=== PATIENT | male | born 1950 | race Caucasian/White ===

== ENCOUNTER 2023-07-17 16:43 | Inpatient (IN) | payer BC, MEDICARE ==
[2023-07-17 17:39] LABS: Basophils # (A) 0.1 k/uL (0-0.2); Basophils % (A) 1 %; Eosinophils # (A) 0.3 k/uL (0-0.7); Eosinophils % (A) 2 %; HCT 54.4 % (39.0-53.0); HGB 16.7 gm/dL (13.0-17.5); Lymphocytes # (A) 1.1 k/uL (1.0-4.8); Lymphocytes % (A) 9 %; MCHC 30.6 g/dL (31.0-37.0); Mean Platelet Volume 12.1; Monocytes # (A) 0.9 k/uL (0-1.0); Monocytes % (A) 8 %; Neutrophils # (A) 9.1 k/uL (1.3-7.7); Neutrophils % (A) 77 %; Platelet Count 188 k/uL (150-450); RBC 6.18 m/uL (4.30-5.90); RDW 14.7 % (11.5-15.5); WBC 11.8 k/uL (3.8-10.6)
[2023-07-17 17:49] LABS: ALT 34 U/L (4-49); AST 38 U/L (17-59); African American GFR (CKD) >90 (>60 ml/min/1.73 sqM); Albumin 4.2 g/dL (3.5-5.0); Alkaline Phosphatase 112 U/L (38-126); Anion Gap 9 mmol/L; Blood Urea Nitrogen 13 mg/dL (9-20); Calcium 9.2 mg/dL (8.4-10.2); Carbon Dioxide 24 mmol/L (22-30); Chloride 102 mmol/L (98-107); Glucose 135 mg/dL (74-99); Magnesium 1.9 mg/dL (1.6-2.3); Non-African American GFR(CKD) 88 (>60 ml/min/1.73 sqM); Sodium 135 mmol/L (137-145); Total Bilirubin 1.8 mg/dL (0.2-1.3); Total Protein 6.9 g/dL (6.3-8.2)
[2023-07-17 17:56] LABS: INR 1.4 (<1.2); Partial Thromboplastin Time 23.6 sec (22.0-30.0); Prothrombin Time 14.3 sec (10.0-12.5)
--- NOTE | 2023-07-17 17:56 | ED ---
SOB HPI - General Chief Complaint: Shortness of Breath Stated Complaint: Swollen Legs,Rash Time Seen by Provider: 07/17/23 17:43 Source: patient Mode of arrival: ambulatory Limitations: no limitations - History of Present Illness Initial Comments: This patient is a 72-year-old man who presents to have evaluation for constellation of symptoms that been getting worse over 2 to 3 weeks. The patient has noted that he has had bilateral lower extremity edema which has progressed up his legs, is now involving his scrotum and his abdomen. He also has been feeling more short of breath. He has a nonproductive cough. His breathing is worse if he lies flat or if he attempts to do any exertion. The patient denies chest pain. No nausea or vomiting. Has not noted change in bowel movements. Patient's states he seems to be urinating more frequentl y. The patient does not see a physician. He states that he more often than not will drink about a half a pint of liquor per day. MD Complaint: shortness of breath Onset/Timin -: week(s) Quality: other (Pressure/tight feeling throughout the extremities) Consistency: constant Improves With: upright position Worsens With: lying flat, exertion Associated Symptoms: cough, lower extremity pain (Swelling), lower abdominal swelling Treatments Prior to Arrival: none - Related Data Home Medications Medication Instructions Recorded Confirmed Ascorbic Acid [Vitamin C] 500 mg PO DAILY 07/17/23 07/17/23 Cholecalciferol [Vitamin D3 (25 50 mcg PO DAILY 07/17/23 07/17/23 Mcg = 1000 Iu)] Famotidine [Pepcid] 20 mg PO BID PRN 07/17/23 07/17/23 Guaifenesin/Pseudoephedrne HCl 1 tab PO BID PRN 07/17/23 07/17/23 [Mucinex D ER 1,200-120 mg Tab] Melatonin 5 mg PO HS 07/17/23 07/17/23 Milk Thistle 350mg 350 mg PO DAILY 07/17/23 07/17/23 Oxymetazoline 0.05% Nasl [place] 2 spray EA NOSTRIL BID PRN 07/17/23 07/17/23 [Afrin 0.05% Nasal [place]] Simethicone 180 mg PO DAILY PRN 07/17/23 07/17/23 Ubidecarenone [Coenzyme Q10] 200 mg PO DAILY 07/17/23 07/17/23 Wheat Dextrin [Benefiber] 1 packet PO TID PRN 07/17/23 07/17/23 Previous Rx's Medication Instructions Recorded Apixaban [Eliquis] 5 mg PO BID #60 tab 07/19/23 Acetaminophen Tab [Tylenol] 325 mg PO Q6HR PRN tab 07/23/23 Amiodarone [Cordarone] 200 mg PO DAILY #30 tab 07/23/23 Bumetanide [Bumex] 1 mg PO DAILY #30 tablet 07/23/23 Dapagliflozin Propanediol [Farxiga] 10 mg PO DAILY #30 tab 07/23/23 Metoprolol Tartrate [Lopressor] 75 mg PO TID #150 tab 07/23/23 Sacubitril/Valsartan [Entresto 24 1 each PO BID #60 tab 07/23/23 mg-26 mg Tablet] Spironolactone [Aldactone] 12.5 mg PO DAILY #15 tab 07/23/23 Thiamine [Vitamin B-1] 100 mg PO DAILY #30 cap 07/23/23 diphenhydrAMINE & Zinc Cream 1 applic TOPICAL TID PRN 3 Days #1 07/23/23 [Benadryl Cream] tub Allergies Allergy/AdvReac Type Severity Reaction Status Date / Time No Known Allergies Allergy Verified 07/17/23 18:10 Review of Systems ROS Statement: Those systems with pertinent positive or pertinent negative responses have been documented in the HPI. ROS Other: All systems not noted in ROS Statement are negative. Constitutional: Denies: fever, chills, weakness Respiratory: Reports: cough, dyspnea. Denies: wheezes Cardiovascular: Reports: dyspnea on exertion, orthopnea, edema. Denies: chest pain, palpitations, syncope Gastrointestinal: Denies: abdominal pain, vomiting, diarrhea, constipation Genitourinary: Reports: frequency. Denies: dysuria, hematuria Musculoskeletal: Denies: back pain Skin: Reports: change in color Neurological: Denies: headache, weakness Psychiatric: Reports: anxiety Past Medical History Past Medical History: No Reported History History of Any Multi-Drug Resistant Organisms: None Reported Additional Past Surgical History / Comment(s): sinus surgery Past Psychological History: No Psychological Hx Reported Smoking Status: Never smoker Past Drug Use History: None Reported General Exam Limitations: no limitations General appearance: alert, in distress Head exam: Present: atraumatic, normocephalic Eye exam: Present: normal appearance. Absent: scleral icterus, conjunctival injection Neck exam: Present: normal inspection Respiratory exam: Present: rales (Bilateral bases). Absent: wheezes, rhonchi, stridor, accessory muscle use Cardiovascular Exam: Present: tachycardia, irregular rhythm, normal heart sounds. Absent: systolic murmur, diastolic murmur, rubs, gallop GI/Abdominal exam: Present: soft, distended, hernia (Umbilical). Absent: tenderness, guarding, rebound, rigid, pulsatile mass Extremities exam: Present: full ROM, normal capillary refill, pedal edema, other (Patient has anasarca and chronic stasis change) Back exam: Present: normal inspection. Absent: CVA tenderness (R), CVA tenderness (L) Neurological exam: Present: alert, oriented X3. Absent: motor sensory deficit Psychiatric exam: Present: anxious Skin exam: Present: warm, dry, intact, other (Bilateral stasis change) Course Vital Signs 07/17/23 07/17/23 07/17/23 17:00 19:00 20:30 Temperature 98.5 F Pulse Rate 50 L 146 H 141 H Pulse Rate [ Pulse Oximetery ] Respiratory 20 20 19 Rate Blood Pressure 179/119 138/112 134/107 Blood Pressure [Right Arm] O2 Sat by Pulse 96 96 94 L Oximetry 07/17/23 07/18/23 07/18/23 21:00 00:00 04:00 Temperature 97.8 F 97.8 F Pulse Rate 128 H Pulse Rate [ 113 H 103 H Pulse Oximetery ] Respiratory 19 16 16 Rate Blood Pressure 177/66 Blood Pressure 118/96 122/74 [Right Arm] O2 Sat by Pulse 96 96 98 Oximetry 07/18/23 08:00 Temperature Pulse Rate Pulse Rate [ 113 H Pulse Oximetery ] Respiratory 18 Rate Blood Pressure Blood Pressure [Right Arm] O2 Sat by Pulse Oximetry Medical Decision Making - Medical Decision Making The patient had chest x-ray that I interpreted as showing cardiomegaly and mild CHF. No infiltrate or pneumothorax. Was pt. sent in by a medical professional or institution (, PA, CITY TAX AUDITOR, urgent care, hospital, or [place] health care facility...) When possible be specific @ -[No] Did you speak to anyone other than the patient for history (EMS, parent, family, police, friend...)? What history was obtained from this source @ -[No] Did you review nursing and triage notes (agree or disagree)? Why? @ -[I reviewed and agree with nursing and triage notes] Were old charts reviewed (outside hosp., previous admission, EMS record, old EKG, old radiological studies, urgent care reports/EKG's, [place] health care facility records)? Report findings @ -[No old charts were reviewed] Differential Diagnosis (chest pain, altered mental status, abdominal pain women, abdominal pain men, vaginal bleeding, weakness, fever, dyspnea, syncope, headache, dizziness, GI bleed, back pain, seizure, CVA, palpatations, mental health, musculoskeletal)? @ -[Differential Dyspnea: Coronary syndrome, arrhythmia, tamponade, asthma, COPD, pulmonary embolism, pneumonia, pneumothorax, pulmonary effusion, anaphylaxis, diabetic ketoacidosis, flailed chest, pulmonary contusion, diaphragmatic rupture, anemia, neuromuscular, this is not meant to be an all-inclusive list. EKG interpreted by me (3pts min.). @ -[I interpreted as above] X-rays interpreted by me (1pt min.). @ -[I interpreted as above CT interpreted by me (1pt min.). @ -[None done] U/S interpreted by me (1pt. min.). @ -[None done] What testing was considered but not performed or refused? (CT, X-rays, U/S, labs)? Why? @ -[None] What meds were considered but not given or refused? Why? @ -[None] Did you discuss the management of the patient with other professionals (ratna cotton i.eConcepcion Lima, PA, [employer] T[employer] AUDITOR, lab, RT, psych nurse, director social, automation operator, teacher, admissions officer, comp field case manager)? Give summary @ -[Case discussed with admitting physician and treatment recommendations in corporated Was smoking cessation discussed for >3mins.? @ -[No] Was critical care preformed (if so, how long)? @ -[Yes, 30 minutes Were there social determinants of health that impacted care today? How? (Homelessness, low income, unemployed, alcoholism, drug addiction, transportation, low edu. Level, literacy, decrease access to med. care, usp, rehab)? @ -[No] Was there de-escalation of care discussed even if they declined (Discuss DNR or withdrawal of care, Hospice)? DNR status @ -[No] What co-morbidities impacted this encounter? (DM, HTN, Smoking, COPD, CAD, Cancer, CVA, ARF, Chemo, Hep., AIDS, mental health diagnosis, sleep apnea, morbid obesity)? @ -[History of hypertension Was patient admitted / discharged? Hospital course, mention meds given and route, prescriptions, significant lab abnormalities, going to OR and other pertinent info. @ -[The patient is a 73-year-old man arriving with atrial fibrillation and rapid ventricular rate. Patient started on Cardizem. There is also degree of congestive heart failure. The patient will be admitted to have further treatment as well as cardiology consultation. Undiagnosed new problem with uncertain prognosis? @ -[No] Drug Therapy requiring intensive monitoring for toxicity (Heparin, Nitro, Insulin, Cardizem)? @ -[No] Were any procedures done? @ -[No] Diagnosis/symptom? @ -[Atrial fibrillation with rapid ventricular rate Acute exacerbation of congestive heart failure Acute, or Chronic, or Acute on Chronic? @ -[Acute Uncomplicated (without systemic symptoms) or Complicated (systemic symptoms)? @ -[Complicated by dyspnea Side effects of treatment? @ -[No] Exacerbation, Progression, or Severe Exacerbation? @ -[Exacerbation Poses a threat to life or bodily function? How? (Chest pain, [place], [place], pneumonia, PE, COPD, DKA, ARF, appy, cholecystitis, CVA, Diverticulitis, Homicidal, Suicidal, threat to staff... and all critical care pts) @ -[Yes there is risk of worsening congestive heart failure leading to respir atory failure and - Lab Data Result diagrams: 07/23/23 14:23 07/23/23 10:57 Lab Results 07/17/23 07/17/23 07/17/23 Range/Units 17:04 17:04 17:04 WBC 11.8 H (3.8-10.6) k/uL RBC 6.18 H (4.30-5.90) m/uL Hgb 16.7 (13.0-17.5) gm/dL Hct 54.4 H (39.0-53.0) % MCV 88.0 (80.0-100.0) fL MCH 27.0 (25.0-35.0) pg MCHC 30.6 L (31.0-37.0) g/dL RDW 14.7 (11.5-15.5) % Plt Count 188 (150-450) k/uL MPV 12.1 Neutrophils % 77 % Lymphocytes % 9 % Monocytes % 8 % Eosinophils % 2 % Basophils % 1 % Neutrophils # 9.1 H (1.3-7.7) k/uL Lymphocytes # 1.1 (1.0-4.8) k/uL Monocytes # 0.9 (0-1.0) k/uL Eosinophils # 0.3 (0-0.7) k/uL Basophils # 0.1 (0-0.2) k/uL PT 14.3 H (10.0-12.5) sec INR 1.4 H (<1.2) APTT 23.6 (22.0-30.0) sec Sodium 135 L (137-145) mmol/L Potassium 4.0 (3.5-5.1) mmol/L Chloride 102 (98-107) mmol/L Carbon Dioxide 24 (22-30) mmol/L Anion Gap 9 mmol/L BUN 13 (9-20) mg/dL Creatinine 0.85 (0.66-1.25) mg/dL Est GFR (CKD-EPI)AfAm >90 (>60 ml/min/1.73 sqM) Est GFR (CKD-EPI)NonAf 88 (>60 ml/min/1.73 sqM) Glucose 135 H (74-99) mg/dL Calcium 9.2 (8.4-10.2) mg/dL Magnesium 1.9 (1.6-2.3) mg/dL Total Bilirubin 1.8 H (0.2-1.3) mg/dL AST 38 (17-59) U/L ALT 34 (4-49) U/L Alkaline Phosphatase 112 (38-126) U/L Ammonia (<30) umol/L Troponin I (0.000-0.034) ng/mL NT-Pro-B Natriuret Pep 3120 pg/mL Total Protein 6.9 (6.3-8.2) g/dL Albumin 4.2 (3.5-5.0) g/dL 07/17/23 07/17/23 Range/Units 17:04 17:51 WBC (3.8-10.6) k/uL RBC (4.30-5.90) m/uL Hgb (13.0-17.5) gm/dL Hct (39.0-53.0) % MCV (80.0-100.0) fL MCH (25.0-35.0) pg MCHC (31.0-37.0) g/dL RDW (11.5-15.5) % Plt Count (150-450) k/uL MPV Neutrophils % % Lymphocytes % % Monocytes % % Eosinophils % % Basophils % % Neutrophils # (1.3-7.7) k/uL Lymphocytes # (1.0-4.8) k/uL Monocytes # (0-1.0) k/uL Eosinophils # (0-0.7) k/uL Basophils # (0-0.2) k/uL PT (10.0-12.5) sec INR (<1.2) APTT (22.0-30.0) sec Sodium (137-145) mmol/L Potassium (3.5-5.1) mmol/L Chloride (98-107) mmol/L Carbon Dioxide (22-30) mmol/L Anion Gap mmol/L BUN (9-20) mg/dL Creatinine (0.66-1.25) mg/dL Est GFR (CKD-EPI)AfAm (>60 ml/min/1.73 sqM) Est GFR (CKD-EPI)NonAf (>60 ml/min/1.73 sqM) Glucose (74-99) mg/dL Calcium (8.4-10.2) mg/dL Magnesium (1.6-2.3) mg/dL Total Bilirubin (0.2-1.3) mg/dL AST (17-59) U/L ALT (4-49) U/L Alkaline Phosphatase (38-126) U/L Ammonia <9 (<30) umol/L Troponin I 0.031 (0.000-0.034) ng/mL NT-Pro-B Natriuret Pep pg/mL Total Protein (6.3-8.2) g/dL Albumin (3.5-5.0) g/dL - EKG Data -: EKG Interpreted by Me EKG shows normal: axis (Normal), intervals (Normal), QRS complexes (Possible old anterior infarct.) Rate: tachycardia Interpretation: other (Rhythm is atrial fibrillation with RVR rate 169 bpm) Disposition Clinical Impression: Heart failure, Atrial fibrillation with rapid ventricular response Disposition: ADMITTED IP TO THIS HOSP Condition: Serious
[2023-07-17 17:58] LABS: NT-Pro-B-Type Natriuretic Pept 3120 pg/mL
[2023-07-17] MEDS: LORazepam 2 MG/ML INJ IV STA (18:19)
[2023-07-17] MEDS: NITROGLYCERIN OINT 1 INCH/GM PACKET TOPICAL STA (18:19)
[2023-07-17] MEDS: FUROSEMIDE 10 MG/ML 4 ML VIAL IV STA (18:21)
[2023-07-17] MEDS: DILTIAZEM DRIP BOLUS FROM BAG 1 MG SOLN IV ONE (18:31)
[2023-07-17] MEDS: DILTIAZEM 125 MG in SODIUM CHLORIDE 0.9% 100 ML IV SCH (18:32)
--- NOTE | 2023-07-17 18:43 | XR ---
EXAMINATION TYPE: XR chest 2V DATE OF EXAM: 07/17/2023 6:10 PM CLINICAL INDICATION:Male, 72 years old with history of difficulty breathing; COMPARISON: Chest radiographs from 07/17/2023 TECHNIQUE: XR chest 2V Frontal and lateral views of the chest. FINDINGS: Lungs/Pleura: There is no evidence of pleural effusion, focal consolidation, or pneumothorax. Pulmonary vascularity: Unremarkable. Heart/mediastinum: Cardiomediastinal silhouette is enlarged and stable. Musculoskeletal: No acute osseous pathology. IMPRESSION: Cardiomegaly, pulmonary vascular congestion and bilateral pleural effusions. Correlate with BNP for c ongestive heart failure.
[2023-07-17] MEDS: FUROSEMIDE 10 MG/ML 4 ML VIAL IV SCH (21:33)
[2023-07-17] MEDS: lisinopriL 10 MG TAB PO SCH (21:39)
[2023-07-18] MEDS: NITROGLYCERIN OINT 1 INCH/GM PACKET TOPICAL SCH (00:48)
[2023-07-18] MEDS ORDERED: guaiFENesin 600 MG TABLET.ER PO PRN (10:54)
[2023-07-18] MEDS ORDERED: FAMOTIDINE 20 MG TAB PO PRN (10:55)
[2023-07-18] MEDS ORDERED: PSEUDOEPHEDRINE 12HR 120 MG TABLET.ER PO PRN (10:57)
--- NOTE | 2023-07-18 11:04 | P.HPIM ---
History of Present Illness Patient is a pleasant 72 years old male with past medical history of multiple problems as below. Presents because of worsening dyspnea over a few days with increasing swelling in the legs and the scrotum. Also has difficulty lying flat Patient is able to walk with a few steps with the help with the at bedside. Patient denies chest pain, he has occasional coughing No change in urine or bowel habits. No headache dizziness or weakness. He denies smoking or illicit drugs He drinks alcohol most of the week but over the last week he was not drinking because of his sickness Patient was tachycardic on admission with heart rate was 140s. Rest of vitals look stable and patient is afebrile Labs reviewed he has unremarkable CBC, BMP liver enzymes and INR 1.4 He has mild leukocytosis 11.8 Troponin is -0.0131 Ammonia less than 9 proBNP 3120 EKG showing atrial fibrillation with a rate of 169 Chest x-ray showing cardiomegaly with pulmonary vascular congestion Patient started on Cardizem drip currently on 10 mg and IV Lasix 40 mg twice daily Review of Systems Review of systems CONSTITUTIONAL: No fever, no malaise, no fatigue. HEENT: No recent visual problems or hearing problems. Denied any sore throat. CARDIOVASCULAR: No orthopnea, PND, no palpitations, no syncope. PULMONARY: no cough, no hemoptysis. GASTROINTESTINAL: No diarrhea, no nausea, no vomiting, no abdominal pain. Normoactive bowel sounds. NEUROLOGICAL: No headaches, no weakness, no numbness. HEMATOLOGICAL: Denies any bleeding or petechiae. GENITOURINARY: Denies any burning micturition, frequency, or urgency. MUSCULOSKELETAL/RHEUMATOLOGICAL: Denies any joint pain, swelling, or any muscle pain. ENDOCRINE: Denies any polyuria or polydipsia. Past Medical History Past Medical History: Hypertension History of Any Multi-Drug Resistant Organisms: None Reported Additional Past Surgical History / Comment(s): sinus surgery Past Anesthesia/Blood Transfusion Reactions: No Reported Reaction Past Psychological History: No Psychological Hx Reported Smoking Status: Never smoker Past Drug Use History: None Reported Medications and Allergies Home Medications Medication Instructions Recorded Confirmed Type Ascorbic Acid [Vitamin C] 500 mg PO DAILY 07/17/23 07/17/23 History Cholecalciferol [Vitamin D3 (25 50 mcg PO DAILY 07/17/23 07/17/23 History Mcg = 1000 Iu)] Famotidine [Pepcid] 20 mg PO BID PRN 07/17/23 07/17/23 History Guaifenesin/Pseudoephedrne HCl 1 tab PO BID PRN 07/17/23 07/17/23 History [Mucinex D ER 1,200-120 mg Tab] Melatonin 5 mg PO HS 07/17/23 07/17/23 History Milk Thistle 350mg 350 mg PO DAILY 07/17/23 07/17/23 History Oxymetazoline 0.05% Nasl [place] 2 spray EA NOSTRIL BID PRN 07/17/23 07/17/23 History [Afrin 0.05% Nasal [place]] Simethicone 180 mg PO DAILY PRN 07/17/23 07/17/23 History Ubidecarenone [Coenzyme Q10] 200 mg PO DAILY 07/17/23 07/17/23 History Wheat Dextrin [Benefiber] 1 packet PO TID PRN 07/17/23 07/17/23 History diphenhydrAMINE HCL [Benadryl] 25 - 50 mg PO Q4H PRN 07/17/23 07/17/23 History Allergies Allergy/AdvReac Type Severity Reaction Status Date / Time No Known Allergies Allergy Verified 07/17/23 18:10 Physical Exam Vitals: Vital Signs Temp Pulse Pulse Resp BP BP Pulse Ox 07/18/23 04:00 97.8 F 103 H 16 122/74 98 07/18/23 00:00 97.8 F 113 H 16 118/96 96 07/17/23 21:00 128 H 19 177/66 96 07/17/23 20:30 141 H 19 134/107 94 L 07/17/23 19:00 146 H 20 138/112 96 07/17/23 17:00 98.5 F 50 L 20 179/119 96 Intake and Output 07/17/23 07/18/23 07/18/23 22:59 06:59 14:59 Intake Total 20.25 88 Output Total 3025 450 Balance -3004.75 -450 88 Intake: Intake, IV Titration 20.25 88 Amount Diltiazem 125 mg In 20.25 88 Sodium Chloride 0.9% 100 ml @ 5 MG/HR 5 mls/hr IV .Q24H COUNT INCLUDES THE [facility] Rx#:[id number] Output: Urine 3025 450 Other: Weight 99.79 kg GENERAL: The patient is alert and oriented x3, not in any acute distress. Well developed, well nourished. HEENT: Pupils are round and equally reacting to light. EOMI. No scleral icterus. No conjunctival pallor. Normocephalic, atraumatic. No pharyngeal erythema. No thyromegaly. CARDIOVASCULAR: S1 and S2 present. No murmurs, rubs, or gallops. -PULMONARY: Chest is clear to auscultation, no wheezing , bilateral basal crackles. ABDOMEN: Soft, nontender, nondistended, normoactive bowel sounds. No palpable or ganomegaly. MUSCULOSKELETAL: No joint swelling or deformity. -EXTREMITIES: No cyanosis, clubbing, bilateral pitting leg edema. Bilateral dermatitis on the front of the legs, looks chronic NEUROLOGICAL: Gross neurological examination did not reveal any focal deficits. SKIN: No rashes. no petechiae. Results CBC & Chem 7: 07/17/23 17:04 07/17/23 17:04 Labs: Abnormal Lab Results - Last 24 Hours (Table) 07/17/23 07/17/23 07/17/23 Range/Units 17:04 17:04 17:04 WBC 11.8 H (3.8-10.6) k/uL RBC 6.18 H (4.30-5.90) m/uL Hct 54.4 H (39.0-53.0) % MCHC 30.6 L (31.0-37.0) g/dL Neutrophils # 9.1 H (1.3-7.7) k/uL PT 14.3 H (10.0-12.5) sec INR 1.4 H (<1.2) Sodium 135 L (137-145) mmol/L Glucose 135 H (74-99) mg/dL Total Bilirubin 1.8 H (0.2-1.3) mg/dL Thrombosis Risk Factor Assmnt - Choose All That Apply Any of the Below Risk Factors Present?: No Each Risk Factor Represents 2 Points: Age 61-74 years Thrombosis Risk Factor Assessment Total Risk Factor Score: 2 Thrombosis Risk Factor Assessment Level: Low Risk Assessment and Plan Assessment: Acute CHF exacerbation Atrial fibrillation with RVR Bilateral lower extremity dermatitis, acute on chronic Plan: Continue with IV Lasix Continue with Cardizem drip Anticoagulation per gummed tape press operator Cardiology team GI and DVT prophylaxis Further recommendation per her scores Prognosis is guarded
--- NOTE | 2023-07-18 11:36 | CA ---
Transthoracic Echo Report Name: Rolo Scott Age: 72 Gender: M : 1950 Exam Date: 07/18/2023 08:54 Exam Location: [facility] Ht (in): 68 Wt (lb): 220 Ordering Physician: William Farrell MD Attending/Referring Phys: Ticker Wirer Vicky Javier RDCS Procedure CPT: Indications: New CHF diagnosis Cardiac Hx: Technical Quality: Fair Contrast 1: Total Dose (mL): Contrast 2: Total Dose (mL): MEASUREMENTS (Male / Female) Normal Values 2D ECHO LV Diastolic Diameter PLAX 4.9 cm 4.2 - 5.9 / 3.9 - 5.3 cm LV Systolic Diameter PLAX 3.9 cm IVS Diastolic Thickness 1.0 cm 0.6 - 1.0 / 0.6 - 0.9 cm LVPW Diastolic Thickness 1.3 cm 0.6 - 1.0 / 0.6 - 0.9 cm LV Relative Wall Thickness 0.5 RV Internal Dim ED PLAX 2.5 cm LVOT Diameter 2.1 cm LA Systolic Diameter LX 4.0 cm 3.0 - 4.0 / 2.7 - 3.8 cm LV Diastolic Volume MOD BP 68.2 cm??? 67 - 155 / 56 - 104 cm??? LV Systolic Volume MOD BP 42.6 cm??? 22 - 58 / 19 - 49 cm??? LV Ejection Fraction MOD BP 37.6 % >= 55 % LV Cardiac Index MOD BP 1210.0 cm???/min???m??? LV Diastolic Volume MOD 4C 63.3 cm??? LV Systolic Volume MOD 4C 40.1 cm??? LV Ejection Fraction MOD 4C 36.7 % LV Cardiac Index MOD 4C 1096.6 cm???/min???m??? LV Diastolic Length 4C 8.0 cm LV Systolic Length 4C 6.9 cm LV Diastolic Volume MOD 2C 64.2 cm??? LV Systolic Volume MOD 2C 44.2 cm??? LV Ejection Fraction MOD 2C 31.1 % LV Cardiac Index MOD 2C 942.9 cm???/min???m??? LV Diastolic Length 2C 7.0 cm LV Systolic Length 2C 6.7 cm LA Volume 81.9 cm??? 18 - 58 / 22 - 52 cm??? LA Volume Index 36.8 cm???/m??? 16 - 28 cm???/m??? M-MODE Aortic Root Diameter MM 3.2 cm LA Systolic Diameter MM 4.4 cm LA Ao Ratio MM 1.4 AV Cusp Separation MM 1.6 cm DOPPLER AV Peak Velocity 180.1 cm/s AV Peak Gradient 13.0 mmHg AV Mean Velocity 148.7 cm/s AV Mean Gradient 9.7 mmHg AV Velocity Time Integral 39.4 cm LVOT Peak Velocity 88.8 cm/s LVOT Peak Gradient 3.2 mmHg LVOT Velocity Time Integral 16.7 cm LVOT Stroke Volume 56.0 cm??? LVOT Stroke Volume Index 26.3 ml/m??? LVOT Cardiac Index 2647.0 cm???/min???m??? AV Area Cont Eq vti 1.4 cm??? AV Area Cont Eq pk 1.6 cm??? TR Peak Velocity 293.1 cm/s TR Peak Gradient 34.4 mmHg Right Atrial Pressure 10.0 mmHg Pulmonary Artery Systolic Pressu 44.4 mmHg Right Ventricular Systolic Press 44.4 mmHg FINDINGS Left Ventricle Left ventricular ejection fraction is estimated at 35-40 %. Moderately decreased left ventricular ejection fraction. Reduced global left ventricular systolic function. Left ventricular cavity size normal. Right Ventricle Moderate right ventricular dilatation. Hypokinetic right ventricular free wall. Mild pulmonary hypertension. Right Atrium Severe right atrial dilatation. Left Atrium Moderately increased left atrial volume. Mildly increased left atrial area. Mitral Valve Structurally normal mitral valve. Mild mitral regurgitation. Mitral annular calcification. Aortic Valve Trileaflet aortic valve. Diffuse thickening (sclerosis) of the aortic valve cusps without reduced excursion. Tricuspid Valve Structurally normal tricuspid valve. Mild tricuspid regurgitation. Pulmonic Valve Structurally normal pulmonic valve. Trace pulmonic regurgitation. No pulmonic stenosis. Pericardium Small pericardial effusion. Aorta Normal size aortic root and proximal ascending aorta. CONCLUSIONS 1. Moderate global hypokinesis of the left ventricle 2. Mild mitral and tricuspid regurgitation with mild pulmonary hypertension 3. Aortic sclerosis with no evidence of stenosis Previewed by: Dr. Mohamud Andrew MD (Electronically Signed) Final Date: 18 Jul 2023 11:34
[2023-07-18 11:48] LABS: Basophils # (A) 0.1 k/uL (0-0.2); Basophils % (A) 1 %; Eosinophils # (A) 0.3 k/uL (0-0.7); Eosinophils % (A) 3 %; HCT 54.4 % (39.0-53.0); HGB 16.8 gm/dL (13.0-17.5); Hypochromasia Slight; Lymphocytes # (A) 0.7 k/uL (1.0-4.8); Lymphocytes % (A) 6 %; MCH 27.6 pg (25.0-35.0); MCHC 30.8 g/dL (31.0-37.0); MCV 89.6 fL (80.0-100.0); Mean Platelet Volume 11.1; Monocytes # (A) 1.2 k/uL (0-1.0); Monocytes % (A) 11 %; Neutrophils # (A) 8.9 k/uL (1.3-7.7); Neutrophils % (A) 78 %; Platelet Count 153 k/uL (150-450); RBC 6.08 m/uL (4.30-5.90); RDW 14.9 % (11.5-15.5); WBC 11.4 k/uL (3.8-10.6)
[2023-07-18 11:53] LABS: INR 1.4 (<1.2); Partial Thromboplastin Time 23.7 sec (22.0-30.0); Prothrombin Time 14.4 sec (10.0-12.5)
[2023-07-18] MEDS: TRIAMCINOLONE ACET 0.1% OINTMENT 80 GM TUBE TOPICAL SCH (13:56)
[2023-07-18] MEDS: HEPARIN SODIUM 1,000 UN/ML (10ML VL) IV ONE (13:56)
[2023-07-18] MEDS: HEPARIN SOD,PORK IN 0.45% NACL 25,000 UNIT in 0.45% NACL 1 250ML.BAG IV SCH (13:57)
[2023-07-18] MEDS: METOPROLOL TARTRATE 25 MG TAB PO SCH (13:57)
--- NOTE | 2023-07-18 14:05 | P.CRDCN ---
History of Present Illness History of present illness: HISTORY OF PRESENT ILLNESS: This is a 72-year-old male with a past medical history significant for daily alcohol use. Patient does not follow with a buckler and lacer. We have been asked to see the patient in consultation for congestive heart failure. Patient examined at the bedside. States he has been feeling short of breath for the past few years. He states over the past couple weeks it has been getting worse. He also reports lower extremity edema. Patient states he has not seen a doctor in quite a few years. Patient presented to the hospital for further evaluation. Patient was found to be in acute heart failure. Patient was also found to be in A-fib with RVR. He denies a history of CHF or atrial fibrillation. IV Cardizem was started and is currently infusing at 10 mg an hour. Echocardiogram obtained this admission reveals ejection fraction 35 to 40%, mild pulmonary hypertension, mild MR, mild TR and aortic sclerosis with no evidence of stenosis. DIAGNOSTICS: - EKG reveals fibrillation with RVR. - Chest xray cardiomegaly, pulmonary vascular congestion and bilateral pleural effusions - Laboratory data: WBC 11.8. Hemoglobin 16.7. Platelet count 188. Sodium 135. Potassium 4.0. BUN 13. Creatinine 0.85. Magnesium 1.9. Troponin negative x 1. proBNP 3120. - Current home cardiac medications include none - No previous echocardiogram or cardiac catheterization available in EMR for review REVIEW OF SYSTEMS: At the time of my exam: CONSTITUTIONAL: Denies fever or chills. HEENT: Denies blurred vision, vision changes, or eye pain. Denies hemoptysis CARDIOVASCULAR: Denies chest pain. Denies orthopnea. Denies PND. Denies palpitations RESPIRATORY: Reports shortness of breath. GASTROINTESTINAL: Denies abdominal pain. Denies nausea or vomiting. HEMATOLOGIC: Denies bleeding disorders. GENITOURINARY: Denies any blood in urine. SKIN: Denies pruitis. Denies rash. PHYSICAL EXAM: VITAL SIGNS: Reviewed. GENERAL: Well-developed in no acute distress. HEENT: Head is normocephalic. Pupils are equal, round. Sclerae anicteric. Mucous membranes of the mouth are moist. Neck supple. No JVD or thyromegaly LUNGS: Respirations even and unlabored. Lungs with bibasilar rales HEART: Irregular rate and rhythm. S1 and S2 heard. ABDOMEN: Soft. Nondistended. Nontender. EXTREMITIES: Normal range of motion. No clubbing or cyanosis. Peripheral pulses intact. 1-2+ bilateral lower extremity edema. Erythema noted to right leg NEUROLOGIC: Awake and alert. Oriented x 3. ASSESSMENT: Shortness of breath Acute heart failure with reduced EF, 35 to 40% New onset cardiomyopathy, ischemic versus nonischemic New onset atrial fibrillation with RVR Daily alcohol use PLAN: 2D echo obtained and reviewed Discontinue IV Cardizem Begin IV amiodarone bolus and drip per protocol Add metoprolol 25 mg twice a day Continue telemetry monitoring Increase Lasix to 40 mg IV every 8 hours Daily weights, accurate intake and output, and monitoring of kidney function Begin IV heparin Abstinence from alcohol encouraged Patient will require eventual cardiac catheterization Further recommendations pending patient course Nurse practitioner note has been reviewed by physician. Signing provider agrees with the documented findings, assessment, and plan of care documented by BINDING PRINTER as a scribe. Past Medical History Past Medical History: Hypertension History of Any Multi-Drug Resistant Organisms: None Reported Additional Past Surgical History / Comment(s): sinus surgery Past Anesthesia/Blood Transfusion Reactions: No Reported Reaction Past Psychological History: No Psychological Hx Reported Smoking Status: Never smoker Past Drug Use History: None Reported Medications and Allergies Home Medications Medication Instructions Recorded Confirmed Type Ascorbic Acid [Vitamin C] 500 mg PO DAILY 07/17/23 07/17/23 History Cholecalciferol [Vitamin D3 (25 50 mcg PO DAILY 07/17/23 07/17/23 History Mcg = 1000 Iu)] Famotidine [Pepcid] 20 mg PO BID PRN 07/17/23 07/17/23 History Guaifenesin/Pseudoephedrne HCl 1 tab PO BID PRN 07/17/23 07/17/23 History [Mucinex D ER 1,200-120 mg Tab] Melatonin 5 mg PO HS 07/17/23 07/17/23 History Milk Thistle 350mg 350 mg PO DAILY 07/17/23 07/17/23 History Oxymetazoline 0.05% Nasl [place] 2 spray EA NOSTRIL BID PRN 07/17/23 07/17/23 History [Afrin 0.05% Nasal [place]] Simethicone 180 mg PO DAILY PRN 07/17/23 07/17/23 History Ubidecarenone [Coenzyme Q10] 200 mg PO DAILY 07/17/23 07/17/23 History Wheat Dextrin [Benefiber] 1 packet PO TID PRN 07/17/23 07/17/23 History diphenhydrAMINE HCL [Benadryl] 25 - 50 mg PO Q4H PRN 07/17/23 07/17/23 History Allergies Allergy/AdvReac Type Severity Reaction Status Date / Time No Known Allergies Allergy Verified 07/17/23 18:10 Physical Exam Vitals: Vital Signs Temp Pulse Pulse Resp BP BP Pulse Ox 07/18/23 04:00 97.8 F 103 H 16 122/74 98 07/18/23 00:00 97.8 F 113 H 16 118/96 96 07/17/23 21:00 128 H 19 177/66 96 07/17/23 20:30 141 H 19 134/107 94 L 07/17/23 19:00 146 H 20 138/112 96 07/17/23 17:00 98.5 F 50 L 20 179/119 96 Intake and Output 07/17/23 07/18/23 07/18/23 22:59 06:59 14:59 Intake Total 20.25 88 Output Total 3025 450 Balance -3004.75 -450 88 Intake: Intake, IV Titration 20.25 88 Amount Diltiazem 125 mg In 20.25 88 Sodium Chloride 0.9% 100 ml @ 5 MG/HR 5 mls/hr IV .Q24H [facility] Rx#:[id number] Output: Urine 3025 450 Other: Weight 99.79 kg Results 07/18/23 11:20 07/17/23 17:04 Cardiac Enzymes 07/17/23 07/17/23 Range/Units 17:04 17:04 AST 38 (17-59) U/L Troponin I 0.031 (0.000-0.034) ng/mL Coagulation 07/17/23 Range/Units 17:04 PT 14.3 H (10.0-12.5) sec APTT 23.6 (22.0-30.0) sec CBC 07/17/23 Range/Units 17:04 WBC 11.8 H (3.8-10.6) k/uL RBC 6.18 H (4.30-5.90) m/uL Hgb 16.7 (13.0-17.5) gm/dL Hct 54.4 H (39.0-53.0) % Plt Count 188 (150-450) k/uL Comprehensive Metabolic Panel 07/17/23 Range/Units 17:04 Sodium 135 L (137-145) mmol/L Potassium 4.0 (3.5-5.1) mmol/L Chloride 102 (98-107) mmol/L Carbon Dioxide 24 (22-30) mmol/L BUN 13 (9-20) mg/dL Creatinine 0.85 (0.66-1.25) mg/dL Glucose 135 H (74-99) mg/dL Calcium 9.2 (8.4-10.2) mg/dL AST 38 (17-59) U/L ALT 34 (4-49) U/L Alkaline Phosphatase 112 (38-126) U/L Total Protein 6.9 (6.3-8.2) g/dL Albumin 4.2 (3.5-5.0) g/dL Current Medications Generic Name Dose Route Start Last Admin Trade Name Freq PRN Reason Stop Dose Admin Furosemide 40 mg 07/17/23 21:15 07/18/23 09:41 Furosemide 10 Mg/Ml 4 Ml Vial IV 40 mg Q12HR [facility] Administration Diltiazem HCl 125 mg/ Sodium 125 mls @ 5 mls/hr 07/17/23 18:15 07/18/23 07:23 Chloride IV 10 mg/hr .Q24H [facility] 10 mls/hr Administration 5 MG/HR Lisinopril 10 mg 07/17/23 21:15 07/18/23 09:42 Lisinopril 10 Mg Tab PO 10 mg DAILY [facility] Administration Nitroglycerin 1 inch 07/18/23 00:00 07/18/23 07:20 Nitroglycerin Oint 1 Inch/Gm Packet TOPICAL 07/19/23 00:01 Not Given Q6HR [facility] Sodium Chloride 10 ml 07/18/23 09:00 07/18/23 09:43 Sodium Chloride 0.9% Flush 10 Ml Syringe IV 10 ml BID [facility] Administration Intake and Output 07/17/23 07/18/23 07/18/23 22:59 06:59 14:59 Intake Total 20.25 88 Output Total 3025 450 Balance -3004.75 -450 88 Intake: Intake, IV Titration 20.25 88 Amount Diltiazem 125 mg In 20.25 88 Sodium Chloride 0.9% 100 ml @ 5 MG/HR 5 mls/hr IV .Q24H [facility] Rx#:[id number] Output: Urine 3025 450 Other: Weight 99.79 kg 07/17/23 17:04 07/17/23 17:04
[2023-07-18] MEDS: DEXTROSE 5% IN WATER 100 ML with AMIODARONE 150 MG IV ONE (14:43)
[2023-07-18] MEDS: FUROSEMIDE 10 MG/ML 4 ML VIAL IV SCH (15:37)
[2023-07-18] MEDS: AMIODARONE 360 MG in DEXTROSE 5% IN WATER 200 ML IV ONE (15:37)
[2023-07-18] MEDS: MELATONIN 5 MG TABLET PO SCH (20:01)
[2023-07-18] MEDS: AMIODARONE 450 MG in DEXTROSE 5% IN WATER 250 ML IV SCH (20:35)
[2023-07-19 02:07] LABS: INR 1.4 (<1.2); Prothrombin Time 14.1 sec (10.0-12.5)
[2023-07-19 02:15] LABS: Basophils # (A) 0.1 k/uL (0-0.2); Basophils % (A) 1 %; Eosinophils # (A) 0.6 k/uL (0-0.7); Eosinophils % (A) 5 %; HCT 52.6 % (39.0-53.0); HGB 16.2 gm/dL (13.0-17.5); Hypochromasia Slight; Lymphocytes # (A) 1.2 k/uL (1.0-4.8); Lymphocytes % (A) 11 %; MCH 27.8 pg (25.0-35.0); MCHC 30.9 g/dL (31.0-37.0); MCV 90.2 fL (80.0-100.0); Mean Platelet Volume 12.1; Monocytes # (A) 0.6 k/uL (0-1.0); Monocytes % (A) 6 %; Neutrophils # (A) 7.9 k/uL (1.3-7.7); Neutrophils % (A) 73 %; Platelet Count 148 k/uL (150-450); RBC 5.83 m/uL (4.30-5.90); RDW 14.9 % (11.5-15.5); WBC 10.7 k/uL (3.8-10.6)
[2023-07-19] MEDS: HEPARIN SODIUM 1,000 UN/ML (10ML VL) IV PRN (02:22)
[2023-07-19] MEDS ORDERED: LORazepam 0.5 MG TAB PO PRN (07:32)
[2023-07-19] MEDS ORDERED: LORazepam 1 MG TAB PO PRN ×3 (07:32)
[2023-07-19] MEDS: CHOLECALCIFEROL 25 MCG (1000 IU) TABLET PO SCH (09:29)
[2023-07-19] MEDS: APIXABAN 5 MG TAB PO SCH (11:32)
[2023-07-19] MEDS: ACETAMINOPHEN TAB 325 MG TAB PO STA (11:32)
[2023-07-19] MEDS: SPIRONOLACTONE 25 MG TAB PO SCH (11:32)
--- NOTE | 2023-07-19 11:39 | P.PN ---
Subjective HISTORY OF PRESENT ILLNESS: This is a 72-year-old male with a past medical history significant for daily alcohol use. Patient does not follow with a vice admiral. We have been asked to see the patient in consultation for congestive heart failure. Patient examined at the bedside. States he has been feeling short of breath for the past few years. He states over the past couple weeks it has been getting worse. He also reports lower extremity edema. Patient states he has not seen a doctor in quite a few years. Patient presented to the hospital for further evaluation. Patient was found to be in acute heart failure. Patient was also found to be in A-fib with RVR. He denies a history of CHF or atrial fibrillation. IV Cardizem was started and is currently infusing at 10 mg an hour. Echocardiogram obtained this admission reveals ejection fraction 35 to 40%, mild pulmonary hypertension, mild MR, mild TR and aortic sclerosis with no evidence of stenosis. DIAGNOSTICS: - EKG reveals fibrillation with RVR. - Chest xray cardiomegaly, pulmonary vascular congestion and bilateral pleural effusions - Laboratory data: WBC 11.8. Hemoglobin 16.7. Platelet count 188. Sodium 135. Potassium 4.0. BUN 13. Creatinine 0.85. Magnesium 1.9. Troponin negative x 1. proBNP 3120. - Current home cardiac medications include none - No previous echocardiogram or cardiac catheterization available in EMR for review 07/19/2023 Patient examined this morning at the bedside. Patient is sitting up in the chair. Patient currently denies chest pain or pressure. He reports improvement in his shortness of breath. He remains in atrial fibrillation with heart rate around 110. He remains on IV amiodarone infusion. Blood pressure stable. PHYSICAL EXAM: VITAL SIGNS: Reviewed. GENERAL: Well-developed in no acute distress. HEENT: Head is normocephalic. Pupils are equal, round. Sclerae anicteric. Mucous membranes of the mouth are moist. Neck supple. No JVD or thyromegaly LUNGS: Respirations even and unlabored. Lungs with bibasilar rales HEART: Irregular rate and rhythm. S1 and S2 heard. ABDOMEN: Soft. Nondistended. Nontender. EXTREMITIES: Normal range of motion. No clubbing or cyanosis. Peripheral pulses intact. 1-2+ bilateral lower extremity edema. Erythema noted to right leg NEUROLOGIC: Awake and alert. Oriented x 3. ASSESSMENT: Shortness of breath Acute heart failure with reduced EF, 35 to 40% New onset cardiomyopathy, ischemic versus nonischemic New onset atrial fibrillation with RVR Daily alcohol use PLAN: Begin oral amiodarone 400 mg twice a day when IV amiodarone infusion is complete Discontinue IV heparin. Begin Eliquis 5 mg twice a day Continue IV Lasix 40 mg every 8 hours Daily weights, accurate intake and output, monitoring of kidney function Increase metoprolol to tartrate to 25 mg 3 times daily Discontinue lisinopril Will begin Entresto on 07/21/2023 Add Aldactone 12.5 mg daily Abstinence from alcohol encouraged Patient will require eventual cardiac catheterization. Inpatient versus outpa tient. Further recommendations pending patient course Nurse practitioner note has been reviewed by physician. Signing provider agrees with the documented findings, assessment, and plan of care documented by REGRINDER OPERATOR as a scribe. Objective - Vital Signs Vital signs: Vital Signs Temp 97.3 F L 07/19/23 04:00 Pulse 74 07/19/23 04:00 Resp 20 07/19/23 04:00 BP 115/76 07/19/23 04:00 Pulse Ox 94 L 07/19/23 04:00 FiO2 Intake & Output 07/18/23 07/19/23 07/19/23 18:59 06:59 18:59 Intake Total 88 366.963 Output Total 890 Balance 88 -523.037 Weight 95.3 kg Intake: Intake, IV Titration 88 366.963 Amount Amiodarone 450 mg In 168.059 Dextrose 5% in Water 250 ml @ 0.5 MG/MIN 16.667 mls/hr IV .Q15H [facility] Rx#: [id number] Diltiazem 125 mg In 88 Sodium Chloride 0.9% 100 ml @ 5 MG/HR 5 mls/hr IV .Q24H [facility] Rx#:[id number] Heparin Sod,Pork in 0.45% 198.904 NaCl 25,000 unit In 0.45 % NaCl 1 250ml.bag @ 10. 021 UNITS/KG/HR 10 mls/hr IV .Q24H [facility] Rx#: [id number] Output: Urine 890 Other: Voiding Method Urinal # Voids 1 - Labs CBC & Chem 7: 07/19/23 01:26 07/17/23 17:04 Labs: Abnormal Lab Results - Last 24 Hours (Table) 07/18/23 07/18/23 07/18/23 Range/Units 11:20 11:20 17:00 WBC 11.4 H (3.8-10.6) k/uL RBC 6.08 H (4.30-5.90) m/uL Hct 54.4 H (39.0-53.0) % MCHC 30.8 L (31.0-37.0) g/dL Plt Count (150-450) k/uL Neutrophils # 8.9 H (1.3-7.7) k/uL Lymphocytes # 0.7 L (1.0-4.8) k/uL Monocytes # 1.2 H (0-1.0) k/uL PT 14.4 H (10.0-12.5) sec INR 1.4 H (<1.2) APTT 35.3 H (22.0-30.0) sec 07/19/23 07/19/23 07/19/23 Range/Units 01:26 01:26 01:26 WBC 10.7 H (3.8-10.6) k/uL RBC (4.30-5.90) m/uL Hct (39.0-53.0) % MCHC 30.9 L (31.0-37.0) g/dL Plt Count 148 L (150-450) k/uL Neutrophils # 7.9 H (1.3-7.7) k/uL Lymphocytes # (1.0-4.8) k/uL Monocytes # (0-1.0) k/uL PT 14.1 H (10.0-12.5) sec INR 1.4 H (<1.2) APTT 35.3 H (22.0-30.0) sec
[2023-07-19] MEDS ORDERED: diphenhydrAMINE 25 MG CAP PO PRN (11:43)
--- NOTE | 2023-07-19 11:43 | P.PN ---
Subjective Patient is a pleasant 72 years old male with past medical history of multiple problems as below. Presents because of worsening dyspnea over a few days with increasing swelling in the legs and the scrotum. Also has difficulty lying flat Patient is able to walk with a few steps with the help with the at bedside. Patient denies chest pain, he has occasional coughing No change in urine or bowel habits. No headache dizziness or weakness. He denies smoking or illicit drugs He drinks alcohol most of the week but over the last week he was not drinking because of his sickness Patient was tachycardic on admission with heart rate was 140s. Rest of vitals look stable and patient is afebrile Labs reviewed he has unremarkable CBC, BMP liver enzymes and INR 1.4 He has mild leukocytosis 11.8 Troponin is -0.0131 Ammonia less than 9 proBNP 3120 EKG showing atrial fibrillation with a rate of 169 Chest x-ray showing cardiomegaly with pulmonary vascular congestion Patient started on Cardizem drip currently on 10 mg and IV Lasix 40 mg twice daily 07/19/2023 Patient still with fluid, he has not been significant respiratory distress or tachypnea while at rest, he is currently sitting in chair. Not walking around. Denies chest pain. He has significant bilateral pitting leg edema and limited air entry on both lung sides. His heart rate is better controlled on amiodarone was stopped and continued on metoprolol 25 mg 3 times daily but this might be adjusted by cardiology Heparin drip switched to Eliquis, sent prescription to pharmacy for co-pay He still has redness in both legs anteriorly, started on triamcinolone with no much benefit today. But will keep it for another 1 or 2 days will keep monitoring As per Benadryl as needed for itching which she uses at home No signs of alcohol withdrawal, last drink was more than a week ago as per patient Review of systems CONSTITUTIONAL: No fever, no malaise, no fatigue. HEENT: No recent visual problems or hearing problems. Denied any sore throat. CARDIOVASCULAR: No orthopnea, PND, no palpitations, no syncope. NEUROLOGICAL: No headaches, no weakness, no numbness. HEMATOLOGICAL: Denies any bleeding or petechiae. GENITOURINARY: Denies any burning micturition, frequency, or urgency. MUSCULOSKELETAL/RHEUMATOLOGICAL: Denies any joint pain, swelling, or any muscle pain. ENDOCRINE: Denies any polyuria or polydipsia. Active Medications Generic Name Dose Route Start Last Admin Trade Name Freq PRN Reason Stop Dose Admin Acetaminophen 325 mg 07/19/23 09:58 Acetaminophen Tab 325 Mg Tab PO Q6HR PRN Fever and/ or Mild Pain Amiodarone HCl 400 mg 07/19/23 13:00 Amiodarone 200 Mg Tab PO BID [facility] Apixaban 5 mg 07/19/23 09:45 07/19/23 11:32 Apixaban 5 Mg Tab PO 5 mg BID [facility] Administration Protocol Cholecalciferol 50 mcg 07/19/23 09:00 07/19/23 09:29 Cholecalciferol 25 Mcg (1000 Iu) Tablet PO 50 mcg DAILY [facility] Administration Diphenhydramine HCl 25 mg 07/18/23 10:54 Diphenhydramine 25 Mg Cap PO Q8HR PRN Allergy Symptoms Famotidine 20 mg 07/18/23 10:55 Famotidine 20 Mg Tab PO BID PRN acid reflux Furosemide 40 mg 07/18/23 16:00 07/19/23 09:29 Furosemide 10 Mg/Ml 4 Ml Vial IV 40 mg Q8HR [facility] Administration Guaifenesin 1,200 mg 07/18/23 10:54 Guaifenesin 600 Mg Tablet.Er PO BID PRN Congestion Amiodarone HCl 450 mg/ 250 mls @ 16.667 mls/hr 07/18/23 20:10 07/19/23 06:40 Dextrose/Water IV 07/19/23 14:09 0.5 mg/min .Q15H [facility] 16.667 mls/hr Administration Protocol 0.5 MG/MIN Lorazepam 0.5 mg 07/19/23 07:32 Lorazepam 0.5 Mg Tab PO Q4HR PRN [place] 4 To 5 Lorazepam 1 mg 07/19/23 07:32 Lorazepam 1 Mg Tab PO Q4HR PRN [place] 6 To 7 Lorazepam 2 mg 07/19/23 07:32 Lorazepam 1 Mg Tab PO Q2HR PRN [place] 10 or greater Lorazepam 2 mg 07/19/23 07:32 Lorazepam 1 Mg Tab PO Q3HR PRN [place] 8 To 9 Melatonin 5 mg 07/18/23 21:00 07/18/23 20:01 Melatonin 5 Mg Tablet PO 5 mg HS [facility] Administration Metoprolol Tartrate 25 mg 07/19/23 16:00 Metoprolol Tartrate 25 Mg Tab PO TID [facility] Sacubitril/Valsartan 1 each 07/21/23 09:00 Sacubitril/Valsartan 24 Mg-26 Mg Tablet PO BID [facility] Sodium Chloride 10 ml 07/18/23 09:00 07/19/23 09:30 Sodium Chloride 0.9% Flush 10 Ml Syringe IV 10 ml BID [facility] Administration Spironolactone 12.5 mg 07/19/23 09:45 07/19/23 11:32 Spironolactone 25 Mg Tab PO 12.5 mg DAILY [facility] Administration Thiamine HCl 100 mg 07/20/23 09:00 Thiamine 100 Mg Tab PO DAILY [facility] Triamcinolone Acetonide 1 applic 07/18/23 11:15 07/19/23 09:30 Triamcinolone Acet 0.1% Ointment 80 Gm Tube TOPICAL 1 applic TID [facility] Administration Protocol Objective - Vital Signs Vital signs: Vital Signs Temp 97.3 F L 07/19/23 04:00 Pulse 74 07/19/23 04:00 Resp 20 07/19/23 04:00 BP 115/76 07/19/23 04:00 Pulse Ox 94 L 07/19/23 04:00 FiO2 Intake & Output 07/18/23 07/19/23 07/19/23 18:59 06:59 18:59 Intake Total 88 366.963 119 Output Total 890 Balance 88 -523.037 119 Weight 95.3 kg Intake: Intake, IV Titration 88 366.963 Amount Amiodarone 450 mg In 168.059 Dextrose 5% in Water 250 ml @ 0.5 MG/MIN 16.667 mls/hr IV .Q15H [facility] Rx#: [id number] Diltiazem 125 mg In 88 Sodium Chloride 0.9% 100 ml @ 5 MG/HR 5 mls/hr IV .Q24H [facility] Rx#:[id number] Heparin Sod,Pork in 0.45% 198.904 NaCl 25,000 unit In 0.45 % NaCl 1 250ml.bag @ 10. 021 UNITS/KG/HR 10 mls/hr IV .Q24H [facility] Rx#: [id number] Oral 119 Output: Urine 890 Other: Voiding Method Urinal # Voids 1 - Exam GENERAL: The patient is alert and oriented x3, not in any acute distress. Well developed, well nourished. HEENT: Pupils are round and equally reacting to light. EOMI. No scleral icterus. No conjunctival pallor. Normocephalic, atraumatic. No pharyngeal erythema. No thyromegaly. CARDIOVASCULAR: S1 and S2 present. No murmurs, rubs, or gallops. -PULMONARY: Chest is clear to auscultation, no wheezing , bilateral basal crackles. Decreased air entry on both sides ABDOMEN: Soft, nontender, nondistended, normoactive bowel sounds. No palpable organomegaly. MUSCULOSKELETAL: No joint swelling or deformity. -EXTREMITIES: No cyanosis, clubbing, or p bilateral pitting leg edema 3+. Bilateral erythematous and possible dermatitis on both legs anteriorly NEUROLOGICAL: Gross neurological examination did not reveal any focal deficits. SKIN: No rashes. no petechiae. - Labs CBC & Chem 7: 07/19/23 01:26 07/17/23 17:04 Labs: Abnormal Lab Results - Last 24 Hours (Table) 07/18/23 07/18/23 07/18/23 Range/Units 11:20 11:20 17:00 WBC 11.4 H (3.8-10.6) k/uL RBC 6.08 H (4.30-5.90) m/uL Hct 54.4 H (39.0-53.0) % MCHC 30.8 L (31.0-37.0) g/dL Plt Count (150-450) k/uL Neutrophils # 8.9 H (1.3-7.7) k/uL Lymphocytes # 0.7 L (1.0-4.8) k/uL Monocytes # 1.2 H (0-1.0) k/uL PT 14.4 H (10.0-12.5) sec INR 1.4 H (<1.2) APTT 35.3 H (22.0-30.0) sec 07/19/23 07/19/23 07/19/23 Range/Units 01:26 01:26 01:26 WBC 10.7 H (3.8-10.6) k/uL RBC (4.30-5.90) m/uL Hct (39.0-53.0) % MCHC 30.9 L (31.0-37.0) g/dL Plt Count 148 L (150-450) k/uL Neutrophils # 7.9 H (1.3-7.7) k/uL Lymphocytes # (1.0-4.8) k/uL Monocytes # (0-1.0) k/uL PT 14.1 H (10.0-12.5) sec INR 1.4 H (<1.2) APTT 35.3 H (22.0-30.0) sec Assessment and Plan Assessment: Acute CHF exacerbation, low ejection fraction 35 to 40% with , stable moderate global hypokinesia Atrial fibrillation with RVR. New onset Bilateral lower extremity dermatitis, acute on chronic. Differential diagnosis is pretibial myxedema Alcohol use disorder, currently no withdrawal symptoms Plan: Continue with IV Lasix Continue with metoprolol Continue with Eliquis, point co-pay Patient reported cardiac catheter complaint Anticoagulation per hand printed circuit board assembler Cardiology team Continue with triamcinolone steroid topical for both legs. Benadryl as needed GI and DVT prophylaxis Further recommendation per her scores Prognosis is guarded
[2023-07-19 11:58] LABS: African American GFR (CKD) >90 (>60 ml/min/1.73 sqM); Anion Gap 7 mmol/L; Blood Urea Nitrogen 18 mg/dL (9-20); Calcium 8.9 mg/dL (8.4-10.2); Carbon Dioxide 28 mmol/L (22-30); Chloride 102 mmol/L (98-107); Glucose 124 mg/dL (74-99); Non-African American GFR(CKD) 88 (>60 ml/min/1.73 sqM); Potassium 3.5 mmol/L (3.5-5.1); Sodium 137 mmol/L (137-145)
[2023-07-19] MEDS: AMIODARONE 200 MG TAB PO SCH (13:42)
[2023-07-19 15:23] VITALS: BMI 31.9
[2023-07-19] MEDS: METOPROLOL TARTRATE 25 MG TAB PO SCH (17:45)
[2023-07-19] MEDS: diphenhydrAMINE 25 MG CAP PO PRN (23:09)
[2023-07-20] MEDS: CEPHALEXIN 500 MG CAP PO SCH (08:54)
[2023-07-20] MEDS: POTASSIUM CHLORIDE ER 20 MEQ TAB.ER PO SCH (08:54)
[2023-07-20] MEDS: METOPROLOL TARTRATE 50 MG TAB PO SCH (08:54)
[2023-07-20] MEDS: THIAMINE 100 MG TAB PO SCH (08:54)
--- NOTE | 2023-07-20 10:26 | P.PN ---
Subjective HISTORY OF PRESENT ILLNESS: This is a 72-year-old male with a past medical history significant for daily alcohol use. Patient does not follow with a dairy helper. We have been asked to see the patient in consultation for congestive heart failure. Patient examined at the bedside. States he has been feeling short of breath for the past few years. He states over the past couple weeks it has been getting worse. He also reports lower extremity edema. Patient states he has not seen a doctor in quite a few years. Patient presented to the hospital for further evaluation. Patient was found to be in acute heart failure. Patient was also found to be in A-fib with RVR. He denies a history of CHF or atrial fibrillation. IV Cardizem was started and is currently infusing at 10 mg an hour. Echocardiogram obtained this admission reveals ejection fraction 35 to 40%, mild pulmonary hypertension, mild MR, mild TR and aortic sclerosis with no evidence of stenosis. DIAGNOSTICS: - EKG reveals fibrillation with RVR. - Chest xray cardiomegaly, pulmonary vascular congestion and bilateral pleural effusions - Laboratory data: WBC 11.8. Hemoglobin 16.7. Platelet count 188. Sodium 135. Potassium 4.0. BUN 13. Creatinine 0.85. Magnesium 1.9. Troponin negative x 1. proBNP 3120. - Current home cardiac medications include none - No previous echocardiogram or cardiac catheterization available in EMR for review 07/19/2023 Patient examined this morning at the bedside. Patient is sitting up in the chair. Patient currently denies chest pain or pressure. He reports improvement in his shortness of breath. He remains in atrial fibrillation with heart rate around 110. He remains on IV amiodarone infusion. Blood pressure stable. 07/20/2023 Patient examined this morning at the bedside. Patient is sitting up in the chair. Patient currently denies chest pain or pressure. He reports improvement in his shortness of breath. He continues to report erythema to his lower extremities. He remains on IV Lasix 40 mg every 8 hours. Kidney function from this morning is currently pending. Urine output over the last 24 hours is 2113 cc. PHYSICAL EXAM: VITAL SIGNS: Reviewed. GENERAL: Well-developed in no acute distress. HEENT: Head is normocephalic. Pupils are equal, round. Sclerae anicteric. Mucous membranes of the mouth are moist. Neck supple. No JVD or thyromegaly LUNGS: Respirations even and unlabored. Lungs with bibasilar rales HEART: Irregular rate and rhythm. S1 and S2 heard. ABDOMEN: Soft. Nondistended. Nontender. EXTREMITIES: Normal range of motion. No clubbing or cyanosis. Peripheral pulses intact. 1-2+ bilateral lower extremity edema. Erythema noted to bilateral lower extremities NEUROLOGIC: Awake and alert. Oriented x 3. ASSESSMENT: Shortness of breath Acute heart failure with reduced EF, 35 to 40% New onset cardiomyopathy, ischemic versus nonischemic New onset atrial fibrillation with RVR Daily alcohol use Bilateral lower extremity cellulitis PLAN: Continue anticoagulation with Eliquis Continue IV Lasix 40 mg every 8 hours Daily weights, accurate intake and output, monitoring of kidney function Increase metoprolol tartrate to 50 mg 3 times a day Patient to begin Entresto on 07/21/[address] Robb, begin Keflex 500 mg 3 times daily for lower extremity cellulitis Abstinence from alcohol encouraged Patient will require eventual cardiac catheterization. Inpatient versus outpatient. Further recommendations pending patient course Nurse practitioner note has been reviewed by physician. Signing provider agrees with the documented findings, assessment, and plan of care documented by ORE SAMPLER as a scribe. Objective - Vital Signs Vital signs: Vital Signs Temp 97.9 F 07/20/23 04:00 Pulse 93 07/20/23 04:00 Resp 19 07/20/23 04:00 BP 133/87 07/20/23 04:00 Pulse Ox 95 07/20/23 04:00 FiO2 Intake & Output 07/19/23 07/20/23 07/20/23 18:59 06:59 18:59 Intake Total 1277 240 Output Total 1713 400 Balance -436 -160 Weight 95.3 kg 94.3 kg Intake: Oral 1277 240 Output: Urine 1713 400 Other: Voiding Method Urinal Urinal # Bowel Movements 0 - Labs CBC & Chem 7: 07/19/23 01:26 07/19/23 10:57 Labs: Abnormal Lab Results - Last 24 Hours (Table) 07/19/23 07/19/23 Range/Units 10:57 10:57 APTT 45.0 H (22.0-30.0) sec Glucose 124 H (74-99) mg/dL
--- NOTE | 2023-07-20 11:06 | P.PN ---
Subjective Patient is a pleasant 72 years old male with past medical history of multiple problems as below. Presents because of worsening dyspnea over a few days with increasing swelling in the legs and the scrotum. Also has difficulty lying flat Patient is able to walk with a few steps with the help with the at bedside. Patient denies chest pain, he has occasional coughing No change in urine or bowel habits. No headache dizziness or weakness. He denies smoking or illicit drugs He drinks alcohol most of the week but over the last week he was not drinking because of his sickness Patient was tachycardic on admission with heart rate was 140s. Rest of vitals look stable and patient is afebrile Labs reviewed he has unremarkable CBC, BMP liver enzymes and INR 1.4 He has mild leukocytosis 11.8 Troponin is -0.0131 Ammonia less than 9 proBNP 3120 EKG showing atrial fibrillation with a rate of 169 Chest x-ray showing cardiomegaly with pulmonary vascular congestion Patient started on Cardizem drip currently on 10 mg and IV Lasix 40 mg twice daily 07/19/2023 Patient still with fluid, he has not been significant respiratory distress or tachypnea while at rest, he is currently sitting in chair. Not walking around. Denies chest pain. He has significant bilateral pitting leg edema and limited air entry on both lung sides. His heart rate is better controlled on amiodarone was stopped and continued on metoprolol 25 mg 3 times daily but this might be adjusted by cardiology Heparin drip switched to Eliquis, sent prescription to pharmacy for co-pay He still has redness in both legs anteriorly, started on triamcinolone with no much benefit today. But will keep it for another 1 or 2 days will keep monitoring As per Rajendra as needed for itching which she uses at home No signs of alcohol withdrawal, last drink was more than a week ago as per patient 07/20/2023 Patient awake and breathing is quiet no chest pain. Still has bilateral leg swelling but improved significantly since admission while he is on IV Lasix 40 mg 3 times a day Bilateral leg erythema is slightly improving on triamcinolone however he started feeling burning from the cream so he wanted to be discontinued or switched Cardiology team added Keflex however the suspicion of infection is low given the clinical presentation and lack fever of leukocytosis. This could be related to rheumatological disease as well so may benefit from follow-up with Dr. Bauer patient and are agreeable and contact information was provided Also metoprolol 25 mg increased to 50 mg 3 times daily, Entresto, And lisinopril 5 mg. He is with CHF. Fraction 35 to 40%. Also he is newly diagnosed A-fib and he was started on heparin drip, switch to Eliquis today. The co-pay for Eliquis is $0 per my discussion with field nurse case manager at bedside and she was updated and she is agreeable with the plan Objective - Vital Signs Vital signs: Vital Signs Temp 98.3 F 07/20/23 08:52 Pulse 105 H 07/20/23 08:52 Resp 16 07/20/23 08:52 BP 135/81 07/20/23 08:52 Pulse Ox 96 07/20/23 08:52 FiO2 Intake & Output 07/19/23 07/20/23 07/20/23 18:59 06:59 18:59 Intake Total 1277 240 140 Output Total 1713 400 Balance -436 -160 140 Weight 95.3 kg 94.3 kg Intake: IV 20 Invasive Line 1 10 Invasive Line 2 10 Oral 1277 240 120 Output: Urine 1713 400 Other: Voiding Method Urinal Urinal Urinal # Bowel Movements 0 - Exam GENERAL: The patient is alert and oriented x3, not in any acute distress. Well developed, well nourished. HEENT: Pupils are round and equally reacting to light. EOMI. No scleral icterus. No conjunctival pallor. Normocephalic, atraumatic. No pharyngeal erythema. No thyromegaly. CARDIOVASCULAR: S1 and S2 present. No murmurs, rubs, or gallops. -PULMONARY: Chest is clear to auscultation, no wheezing , bilateral basal crackles. Decreased air entry on both sides ABDOMEN: Soft, nontender, nondistended, normoactive bowel sounds. No palpable organomegaly. MUSCULOSKELETAL: No joint swelling or deformity. -EXTREMITIES: No cyanosis, clubbing, or p bilateral pitting leg edema 3+. Bilateral erythematous and possible dermatitis on both legs anteriorly NEUROLOGICAL: Gross neurological examination did not reveal any focal deficits. SKIN: No rashes. no petechiae. - Labs CBC & Chem 7: 07/19/23 01:26 07/19/23 10:57 Labs: Abnormal Lab Results - Last 24 Hours (Table) 07/19/23 07/19/23 Range/Units 10:57 10:57 APTT 45.0 H (22.0-30.0) sec Glucose 124 H (74-99) mg/dL Assessment and Plan Assessment: Acute CHF exacerbation, low ejection fraction 35 to 40% with , stable moderate global hypokinesia Atrial fibrillation with RVR. New onset Bilateral lower extremity dermatitis, acute on chronic. Differential diagnosis is pretibial myxedema Alcohol use disorder, currently no withdrawal symptoms Plan: Continue with IV Lasix Continue with metoprolol Continue with Eliquis, $0 co-pay. warranty manager Anticoagulation per aluminum pourer Cardiology team Continue with triamcinolone steroid topical for both legs this could be changed to help with cortisone per patient preference. Benadryl as needed. GI and DVT prophylaxis Further recommendation per her scores Prognosis is guarded
[2023-07-20 12:08] LABS: African American GFR (CKD) >90 (>60 ml/min/1.73 sqM); Anion Gap 11 mmol/L; Blood Urea Nitrogen 21 mg/dL (9-20); Calcium 9.1 mg/dL (8.4-10.2); Carbon Dioxide 24 mmol/L (22-30); Chloride 101 mmol/L (98-107); Glucose 152 mg/dL (74-99); Non-African American GFR(CKD) 89 (>60 ml/min/1.73 sqM); Potassium 4.4 mmol/L (3.5-5.1); Sodium 136 mmol/L (137-145)
[2023-07-20] MEDS: ACETAMINOPHEN TAB 325 MG TAB PO PRN (21:10)
[2023-07-21] MEDS: SACUBITRIL/VALSARTAN 24 MG-26 MG TABLET PO SCH (09:28)
[2023-07-21 10:08] LABS: African American GFR (CKD) 87 (>60 ml/min/1.73 sqM); Anion Gap 8 mmol/L; Blood Urea Nitrogen 25 mg/dL (9-20); Calcium 9.2 mg/dL (8.4-10.2); Carbon Dioxide 30 mmol/L (22-30); Chloride 100 mmol/L (98-107); Glucose 137 mg/dL (74-99); Non-African American GFR(CKD) 75 (>60 ml/min/1.73 sqM); Potassium 4.4 mmol/L (3.5-5.1); Sodium 138 mmol/L (137-145)
--- NOTE | 2023-07-21 11:23 | P.PN ---
Subjective Progress Note Date: 07/21/23 HPI: This patient was seen by me earlier when he got admitted with what appears to be exacerbation of systolic heart failure and new onset atrial fibrillation with history of alcoholism. He has been aggressively diuresed clinically he is doing much better. His A-fib rate control is not quite optimal. However overall clinical picture has improved I am recommending that we optimize his heart failure and discharge him and I will perform cardiac cath as an outpatient. He is in negative fluid balance. I am recommending we add Zaroxolyn 5 mg p.o. daily increase the metoprolol to tartrate to 75 mg 3 times daily and continue his other medications including amiodarone and increase activity. He is right lower extremity and left lower extremity have both some erythematous changes like probably superficial cellulitis type picture for which she is on antibiotics as well. Vitals are stable S1-S2 heard normally irregular rhythm noted short systolic murmur noted lungs reveal improved air entry abdomen is soft lower extremity edema has improved but persists with some cellulitis type picture. Possible discharge in next 24 to 48 hours after achieving optimal rate control. Will continue Eliquis 5 mg twice daily advised to refrain from alcohol. PHYSICIAL EXAM:. IMPRESSION: 1.. 2.. 3.. 4.. 5.. RECOMMENDATIONS:. Objective - Vital Signs Vital signs: Vital Signs Temp 98.0 F 07/21/23 04:00 Pulse 86 07/21/23 09:26 Resp 16 07/21/23 09:26 BP 132/88 07/21/23 09:26 Pulse Ox 92 L 07/21/23 09:26 FiO2 Intake & Output 07/20/23 07/21/23 07/21/23 18:59 06:59 18:59 Intake Total 520 160 20 Output Total 800 150 Balance 520 -640 -130 Weight 95.2 kg 94 kg Intake: IV 40 40 20 Invasive Line 1 20 20 10 Invasive Line 2 20 20 10 Oral 480 120 Output: Urine 800 150 Other: Voiding Method Urinal Urinal Urinal - Labs CBC & Chem 7: 07/19/23 01:26 07/21/23 08:05 Labs: Abnormal Lab Results - Last 24 Hours (Table) 07/20/23 07/21/23 Range/Units 10:38 08:05 Sodium 136 L (137-145) mmol/L BUN 21 H 25 H (9-20) mg/dL Glucose 152 H 137 H (74-99) mg/dL
[2023-07-21] MEDS: METOPROLOL TARTRATE 25 MG TAB PO STA (11:35)
[2023-07-21] MEDS: metOLazone 5 MG TAB PO STA (11:35)
--- NOTE | 2023-07-21 13:55 | CDI ---
Documentation Clarification Form Date: 07/21/2023 From: Maureen Donovan Phone: [phone] Admit Date: 07/17/2023 09:09:00 PM Patient Name: Rolo Scott Visit Number: [id number] Discharge Date: ATTENTION: The Clinical Documentation Specialists (CDI) and [facility] Coding Staff appreciate your assistance in clarifying documentation. Please respond to the clarification below the line at the bottom and electronically sign. The CDI & [facility] Coding staff will review the response and follow-up if needed. Please note: Queries are made part of the Legal Health Record. If you have any questions, please contact the author of this message via ITS. Dr. Segal E Sheet: There is documentation of bilateral lower extremity cellulitis in the Cardiology progress note on 07/19. Additional clarification is requested. History/Risk Factors: 72-year-old male with a history of HTN, CHF who presents with worsening dyspnea and swelling in the legs and scrotum and found to be in acute exacerbation of CHF with pitting edema in bilateral legs Clinical Indicators: 07/16 Triage VS: 179/119, 98.5, 50, 20, 96% room air 07/17 H&P, Assessment: "Bilateral lower extremity dermatitis, acute on chronic" 07/19 Cardiology PN, Assessment: "Bilateral lower extremity cellulitis." 07/19 IM PN, Subjective, 07/19: "Bilateral leg erythema is slightly improving on triamcinolone however he started feeling burning from the cream so he wanted to be discontinued or switched. Cardiology team added Keflex however the suspicion of infection is low given the clinical presentation and lack fever of leukocytosis." 07/16-07/18 WBC: 11.8, 11.4, 10.7 Treatment: Keflex 500mg TID start 07/19 Can you please clarify the bilateral lower extremity cellulitis? [ ] Bilateral lower extremity cellulitis ruled in [ ] Bilateral lower extremity cellulitis ruled out [ x ] Other, please specify __cellulitis felt less likely with no fever, no leukocytosis to explain infection. Lesion is symmetrical and confined [ ] Unable to determine MTDD
[2023-07-21] MEDS: METOPROLOL TARTRATE 50 MG TAB PO SCH (16:24)
--- NOTE | 2023-07-21 22:57 | P.PN ---
Subjective Patient is a pleasant 72 years old male with past medical history of multiple problems as below. Presents because of worsening dyspnea over a few days with increasing swelling in the legs and the scrotum. Also has difficulty lying flat Patient is able to walk with a few steps with the help with the at bedside. Patient denies chest pain, he has occasional coughing No change in urine or bowel habits. No headache dizziness or weakness. He denies smoking or illicit drugs He drinks alcohol most of the week but over the last week he was not drinking because of his sickness Patient was tachycardic on admission with heart rate was 140s. Rest of vitals look stable and patient is afebrile Labs reviewed he has unremarkable CBC, BMP liver enzymes and INR 1.4 He has mild leukocytosis 11.8 Troponin is -0.0131 Ammonia less than 9 proBNP 3120 EKG showing atrial fibrillation with a rate of 169 Chest x-ray showing cardiomegaly with pulmonary vascular congestion Patient started on Cardizem drip currently on 10 mg and IV Lasix 40 mg twice daily 07/19/2023 Patient still with fluid, he has not been significant respiratory distress or tachypnea while at rest, he is currently sitting in chair. Not walking around. Denies chest pain. He has significant bilateral pitting leg edema and limited air entry on both lung sides. His heart rate is better controlled on amiodarone was stopped and continued on metoprolol 25 mg 3 times daily but this might be adjusted by cardiology Heparin drip switched to Eliquis, sent prescription to pharmacy for co-pay He still has redness in both legs anteriorly, started on triamcinolone with no much benefit today. But will keep it for another 1 or 2 days will keep monitoring As per Rajendra as needed for itching which she uses at home No signs of alcohol withdrawal, last drink was more than a week ago as per patient 07/20/2023 Patient awake and breathing is quiet no chest pain. Still has bilateral leg swelling but improved significantly since admission while he is on IV Lasix 40 mg 3 times a day Bilateral leg erythema is slightly improving on triamcinolone however he started feeling burning from the cream so he wanted to be discontinued or switched Cardiology team added Keflex however the suspicion of infection is low given the clinical presentation and lack fever of leukocytosis. This could be related to rheumatological disease as well so may benefit from follow-up with Dr. Bauer patient and are agreeable and contact information was provided Also metoprolol 25 mg increased to 50 mg 3 times daily, Entresto, And lisinopril 5 mg. He is with CHF. Fraction 35 to 40%. Also he is newly diagnosed A-fib and he was started on heparin drip, switch to Eliquis today. The co-pay for Eliquis is $0 per my discussion with case resource manager at bedside and she was updated and she is agreeable with the plan 07/21/2023 Patient leg swelling is improving significantly also he is able to walk more freely by himself in and out of the bathroom No new complaints Patient and at bedside happy with the progress patient is making They think he can go home in 1 to 2 days. Discussed the importance of anticoagulation with risk and benefits. As per discussion with the staff and case resource manager his insurance would cover his Eliquis with no co-pay. Bilateral leg dermatitis is a stable, referring to steam shovelman Dr. Abdalla as an outpatient and patient agrees Metoprolol dose increased 50 mg up to 75 mg 3 times daily by senior controls technician and metolazone is added as well Objective - Vital Signs Vital signs: Vital Signs Temp 98.0 F 07/21/23 04:00 Pulse 95 07/21/23 12:47 Resp 18 07/21/23 12:47 BP 122/65 07/21/23 12:47 Pulse Ox 94 L 07/21/23 12:47 FiO2 Intake & Output 07/20/23 07/21/23 07/21/23 18:59 06:59 18:59 Intake Total 520 160 830 Output Total 800 1300 Balance 520 640 -470 Weight 95.2 kg 94 kg Intake: IV 40 40 40 Invasive Line 1 20 20 20 Invasive Line 2 20 20 20 Oral 480 120 790 Output: Urine 800 1300 Other: Voiding Method Urinal Urinal Urinal - Exam GENERAL: The patient is alert and oriented x3, not in any acute distress. Well developed, well nourished. HEENT: Pupils are round and equally reacting to light. EOMI. No scleral icterus. No conjunctival pallor. Normocephalic, atraumatic. No pharyngeal erythema. No thyromegaly. CARDIOVASCULAR: S1 and S2 present. No murmurs, rubs, or gallops. -PULMONARY: Chest is clear to auscultation, no wheezing , bilateral basal crackles. Decreased air entry on both sides ABDOMEN: Soft, nontender, nondistended, normoactive bowel sounds. No palpable organomegaly. MUSCULOSKELETAL: No joint swelling or deformity. -EXTREMITIES: No cyanosis, clubbing, or p bilateral pitting leg edema 3+. Bilateral erythematous and possible dermatitis on both legs anteriorly NEUROLOGICAL: Gross neurological examination did not reveal any focal deficits. SKIN: No rashes. no petechiae. - Labs CBC & Chem 7: 07/19/23 01:26 07/21/23 08:05 Labs: Abnormal Lab Results - Last 24 Hours (Table) 07/21/23 Range/Units 08:05 BUN 25 H (9-20) mg/dL Glucose 137 H (74-99) mg/dL Assessment and Plan Assessment: Acute CHF exacerbation, low ejection fraction 35 to 40% with , stable moderate global hypokinesia Atrial fibrillation with RVR. New onset Bilateral lower extremity dermatitis, acute on chronic. Differential diagnosis is pretibial myxedema Alcohol use disorder, currently no withdrawal symptoms Plan: Continue with IV Lasix Continue with metoprolol Continue with Eliquis, $0 co-pay per production planning manager Anticoagulation per senior controls technician Cardiology team Continue with triamcinolone steroid topical for both legs this could be changed to help with cortisone per patient preference. Benadryl as needed. GI and DVT prophylaxis Further recommendation per her scores Prognosis is guarded
--- NOTE | 2023-07-22 05:30 | P.PN ---
Subjective Progress Note Date: 07/22/23 SUBJECTIVE: Seen and examined at bedside. Patient reports that he is comfortable. saturating well on room air, no reported chest pain chest pressure. Telemetry shows rate controlled atrial fibrillation Good urine output PHYSICAL EXAMINATION Vital signs reviewed. Head: Normocephalic. Eyes: Sclerae nonicteric. Neck: Brisk carotid upstroke, has elevated jugular venous distention. Lungs: Clear to auscultation. Heart: Irregularly irregular, S1-S2, no S3, no murmur or rub. Abdomen: Soft nontender, bowel sounds present, Extremities: 1+ edema, erythematous rash on steinberg Neuro: Alert, oriented, no focal neurological deficits. Detailed neuro exam was not performed. 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 Outpatient cardiac rehab Chay Gaitan MD, FAC, RPVI Thank you for allowing [facility] to participate in this patient's care. Please contact us in case of any followup questions. Objective - Vital Signs Vital signs: Vital Signs Temp 98.3 F 07/21/23 20:00 Pulse 80 07/22/23 00:00 Resp 18 07/22/23 00:00 BP 128/71 07/22/23 00:00 Pulse Ox 95 07/22/23 00:00 FiO2 Intake & Output 07/21/23 07/21/23 07/22/23 06:59 18:59 06:59 Intake Total 160 830 40 Output Total 800 1300 1625 Balance -686 -483 -6787 Weight 95.2 kg 94 kg Intake: IV 40 40 40 Invasive Line 1 20 20 20 Invasive Line 2 20 20 20 Oral 120 790 Output: Urine 800 1300 1625 Other: Voiding Method Urinal Urinal Urinal - Labs CBC & Chem 7: 07/19/23 01:26 07/21/23 08:05 Labs: Abnormal Lab Results - Last 24 Hours (Table) 07/21/23 Range/Units 08:05 BUN 25 H (9-20) mg/dL Glucose 137 H (74-99) mg/dL
[2023-07-22] MEDS ORDERED: metOLazone 2.5 MG TAB PO SCH (09:00)
[2023-07-22] MEDS: DAPAGLIFLOZIN PROPANEDIOL 10 MG TABLET PO SCH (09:09)
[2023-07-22] MEDS: BUMETANIDE 1 MG TAB PO SCH (09:09)
[2023-07-22 09:21] LABS: African American GFR (CKD) >90 (>60 ml/min/1.73 sqM); Anion Gap 8 mmol/L; Blood Urea Nitrogen 26 mg/dL (9-20); Calcium 9.6 mg/dL (8.4-10.2); Carbon Dioxide 26 mmol/L (22-30); Chloride 99 mmol/L (98-107); Glucose 132 mg/dL (74-99); Non-African American GFR(CKD) 87 (>60 ml/min/1.73 sqM); Potassium 4.1 mmol/L (3.5-5.1); Sodium 133 mmol/L (137-145)
[2023-07-22] MEDS: diphenhydrAMINE 2% CREAM 28.4 GM TUBE TOPICAL SCH (12:49)
--- NOTE | 2023-07-22 22:36 | P.PN ---
Subjective Patient is a pleasant 72 years old male with past medical history of multiple problems as below. Presents because of worsening dyspnea over a few days with increasing swelling in the legs and the scrotum. Also has difficulty lying flat Patient is able to walk with a few steps with the help with the at bedside. Patient denies chest pain, he has occasional coughing No change in urine or bowel habits. No headache dizziness or weakness. He denies smoking or illicit drugs He drinks alcohol most of the week but over the last week he was not drinking because of his sickness Patient was tachycardic on admission with heart rate was 140s. Rest of vitals look stable and patient is afebrile Labs reviewed he has unremarkable CBC, BMP liver enzymes and INR 1.4 He has mild leukocytosis 11.8 Troponin is -0.0131 Ammonia less than 9 proBNP 3120 EKG showing atrial fibrillation with a rate of 169 Chest x-ray showing cardiomegaly with pulmonary vascular congestion Patient started on Cardizem drip currently on 10 mg and IV Lasix 40 mg twice daily 07/19/2023 Patient still with fluid, he has not been significant respiratory distress or tachypnea while at rest, he is currently sitting in chair. Not walking around. Denies chest pain. He has significant bilateral pitting leg edema and limited air entry on both lung sides. His heart rate is better controlled on amiodarone was stopped and continued on metoprolol 25 mg 3 times daily but this might be adjusted by cardiology Heparin drip switched to Eliquis, sent prescription to pharmacy for co-pay He still has redness in both legs anteriorly, started on triamcinolone with no much benefit today. But will keep it for another 1 or 2 days will keep monitoring As per Rajendra as needed for itching which she uses at home No signs of alcohol withdrawal, last drink was more than a week ago as per patient 07/20/2023 Patient awake and breathing is quiet no chest pain. Still has bilateral leg swelling but improved significantly since admission while he is on IV Lasix 40 mg 3 times a day Bilateral leg erythema is slightly improving on triamcinolone however he started feeling burning from the cream so he wanted to be discontinued or switched Cardiology team added Keflex however the suspicion of infection is low given the clinical presentation and lack fever of leukocytosis. This could be related to rheumatological disease as well so may benefit from follow-up with Dr. Bauer patient and are agreeable and contact information was provided Also metoprolol 25 mg increased to 50 mg 3 times daily, Entresto, And lisinopril 5 mg. He is with CHF. Fraction 35 to 40%. Also he is newly diagnosed A-fib and he was started on heparin drip, switch to Eliquis today. The co-pay for Eliquis is $0 per my discussion with assistant case manager at bedside and she was updated and she is agreeable with the plan 07/21/2023 Patient leg swelling is improving significantly also he is able to walk more freely by himself in and out of the bathroom No new complaints Patient and at bedside happy with the progress patient is making They think he can go home in 1 to 2 days. Discussed the importance of anticoagulation with risk and benefits. As per discussion with the staff and assistant case manager his insurance would cover his Eliquis with no co-pay. Bilateral leg dermatitis is a stable, referring to first beater Dr. Abdalla as an outpatient and patient agrees Metoprolol dose increased 50 mg up to 75 mg 3 times daily by patient escort and metolazone is added as well 07/22/2023 Patient continues to improve, his leg swelling is less, he is able to ambulate with minimal exertional dyspnea His IV Lasix was Switched to Bumex 1 mg twice daily Cardiology is already cleared him for discharge we checked his Eliquis and discovered by his insurance Patient was cleared for discharge by patient escort However patient took Benadryl because of the change in his dermatitis in his legs. He became somewhat Drowsy and preferred to stay 1 more night for further monitoring DC systemic Benadryl and switch to topical Benadryl Compression stocking in place Possible discharge in 24 to 48 hours Objective - Vital Signs Vital signs: Vital Signs Temp 98.5 F 07/22/23 08:00 Pulse 65 07/22/23 08:00 Resp 18 07/22/23 08:00 BP 107/68 07/22/23 08:00 Pulse Ox 97 07/22/23 08:00 FiO2 Intake & Output 07/21/23 07/22/23 07/22/23 18:59 06:59 18:59 Intake Total 830 40 20 Output Total 1300 1625 350 Balance -470 -7225 -330 Weight 94 kg 90.4 kg Intake: IV 40 40 20 Invasive Line 1 20 20 10 Invasive Line 2 20 20 10 Oral 790 Output: Urine 1300 1625 350 Other: Voiding Method Urinal Urinal - Exam GENERAL: The patient is alert and oriented x3, not in any acute distress. Well developed, well nourished. HEENT: Pupils are round and equally reacting to light. EOMI. No scleral icterus. No conjunctival pallor. Normocephalic, atraumatic. No pharyngeal erythema. No thyromegaly. CARDIOVASCULAR: S1 and S2 present. No murmurs, rubs, or gallops. -PULMONARY: Chest is clear to auscultation, no wheezing , bilateral basal crackles. Decreased air entry on both sides ABDOMEN: Soft, nontender, nondistended, normoactive bowel sounds. No palpable organomegaly. MUSCULOSKELETAL: No joint swelling or deformity. -EXTREMITIES: No cyanosis, clubbing, or p bilateral pitting leg edema 3+. Bilateral erythematous and possible dermatitis on both legs anteriorly NEUROLOGICAL: Gross neurological examination did not reveal any focal deficits. SKIN: No rashes. no petechiae. - Labs CBC & Chem 7: 07/19/23 01:26 07/22/23 07:56 Labs: Abnormal Lab Results - Last 24 Hours (Table) 07/22/23 Range/Units 07:56 Sodium 133 L (137-145) mmol/L BUN 26 H (9-20) mg/dL Glucose 132 H (74-99) mg/dL Assessment and Plan Assessment: Acute CHF exacerbation, low ejection fraction 35 to 40% with , stable moderate global hypokinesia Atrial fibrillation with RVR. New onset Bilateral lower extremity dermatitis, acute on chronic. Differential diagnosis is pretibial myxedema Alcohol use disorder, currently no withdrawal symptoms Plan: IV Lasix switched to I oral Bumex DC systemic Benadryl and start topical Benadryl Continue with metoprolol Continue with Eliquis, $0 co-pay per e business project manager Anticoagulation per patient escort Cardiology team Continue with triamcinolone steroid topical for both legs this could be changed to help with cortisone per patient preference. Benadryl as needed. GI and DVT prophylaxis Further recommendation per her scores Prognosis is guarded at bedside and she was updated with the plan and she is agreeable
[2023-07-23 11:48] LABS: African American GFR (CKD) 75 (>60 ml/min/1.73 sqM); Anion Gap 11 mmol/L; Blood Urea Nitrogen 31 mg/dL (9-20); Calcium 9.8 mg/dL (8.4-10.2); Carbon Dioxide 30 mmol/L (22-30); Chloride 95 mmol/L (98-107); Glucose 152 mg/dL (74-99); Non-African American GFR(CKD) 65 (>60 ml/min/1.73 sqM); Sodium 136 mmol/L (137-145)
[2023-07-23 12:07] LABS: Basophils # (A) 0.1 k/uL (0-0.2); Basophils % (A) 1 %; Eosinophils # (A) 0.4 k/uL (0-0.7); Eosinophils % (A) 4 %; HGB 18.8 gm/dL (13.0-17.5); Lymphocytes # (A) 1.5 k/uL (1.0-4.8); Lymphocytes % (A) 14 %; MCH 28.2 pg (25.0-35.0); MCHC 31.8 g/dL (31.0-37.0); MCV 88.6 fL (80.0-100.0); Mean Platelet Volume 14.4; Monocytes % (A) 10 %; Neutrophils # (A) 7.4 k/uL (1.3-7.7); Neutrophils % (A) 69 %; Platelet Count 161 k/uL (150-450); RBC 6.69 m/uL (4.30-5.90); RDW 14.5 % (11.5-15.5); WBC 10.7 k/uL (3.8-10.6)
[2023-07-23 12:09] LABS: HCT 59.3 % (39.0-53.0)
[2023-07-23] MEDS: AMIODARONE 200 MG TAB PO SCH (12:59)
[2023-07-23 13:23] LABS: Large Platelets Present
[2023-07-23 14:57] LABS: HGB 18.3 gm/dL (13.0-17.5); MCH 27.3 pg (25.0-35.0); MCV 88.3 fL (80.0-100.0); Mean Platelet Volume 12.1; Platelet Count 211 k/uL (150-450); RBC 6.69 m/uL (4.30-5.90); RDW 14.7 % (11.5-15.5); WBC 13.2 k/uL (3.8-10.6)
[2023-07-23 15:05] LABS: HCT 59.1 % (39.0-53.0)
[2023-07-23 16:30] VITALS: TEMP 98.5
[2023-07-23 18:08] VITALS: BP 115/68; PULSE 82; RESP 17
--- NOTE | 2023-08-07 14:13 | P.DS ---
Providers Date of admission: 07/17/23 21:09 Attending physician: Bonnie Miller Consults: 07/17/23 21:07 Consult Physician Routine Consulting Provider: Abe Coronado Consult Reason/Comments: New CHF Do you want consulting provider notified?: Yes Primary care physician: Stated None Hospital Course: Diagnoses: Acute CHF exacerbation, low ejection fraction 35 to 40% with , stable moderate global hypokinesia Atrial fibrillation with RVR. New onset Bilateral lower extremity dermatitis, acute on chronic. Differential diagnosis is pretibial myxedema Alcohol use disorder, currently no withdrawal symptoms Hospital course: Patient is a pleasant 72 years old male with past medical history of multiple problems as below. Presents because of worsening dyspnea over a few days with increasing swelling in the legs and the scrotum. Also has difficulty lying flat EKG showing atrial fibrillation with a rate of 169. Patient was treated with IV Lasix and IV Cardizem. Heart rate controlled with on amiodarone and metoprolol per lap maker. Patient was started on Eliquis and risk and benefits explained and patient verbalized understanding and acceptance. Patient showed interval improvement, his fluid overload is improved. His leg swelling is improved. Breathing is better. Patient is able to ambulate. PT/OT evaluated patient and recommended home health care. On the day of discharge patient was asymptomatic however he was noticed to have elevated hematocrit, most likely secondary to dehydration a from Bumex 1 mg p.o. twice daily, therefore we lowered the rate of Bumex down to 1 mg p.o. daily. With recommendation to check his CBC with his doctor in 1 week after discharge and he verbalized understanding and acceptance. On the top of that refer the patient to bilingual school psychologist for further recommendation. His bilateral lower extremity cellulitis/erythema improved significantly upon discharge. Patient denies any other new complaint upon discharge. Patient and at bedside were eager to go home. Patient was cleared for discharge by lap maker team Problems and management plan were discussed with the patient and he verbalized understanding and acceptance Patient was found stable and can be discharged home in guarded prognosis however he needs follow-up as an outpatient. Patient was instructed to follow up with PCP Dr. Flores within one week and patient agrees Patient was instructed to follow-up with his lap maker Dr. Robb in 1 week, with gaming worker Dr. Bauer in 1 to 2 weeks for his lower extremity erythema, and bilingual school psychologist/oncologist Dr. Rodriguez in 1 to 2 weeks after discharge and patient verbalized understanding and acceptance to call and make appointment. Physical exam Gen: patient is a AAOx3, no distress CVS: S1-S2, RRR, no murmur Lungs: B/L CTA, no wheezing Abdomen: soft, no distention, no tenderness, positive bowel sounds -Extremity: no leg edema or induration. Bilateral lower erythema is improving, swelling is much improved Time spent more than [address] Flores Patient Condition at Discharge: Serious Plan - Discharge Summary New Discharge Prescriptions: New Apixaban [Eliquis] 5 mg PO BID #60 tab Spironolactone [Aldactone] 12.5 mg PO DAILY #15 tab Sacubitril/Valsartan [Entresto 24 mg-26 mg Tablet] 1 each PO BID #60 tab Dapagliflozin Propanediol [Farxiga] 10 mg PO DAILY #30 tab Acetaminophen Tab [Tylenol] 325 mg PO Q6HR PRN tab PRN Reason: Fever and/ or Mild Pain diphenhydrAMINE & Zinc Cream [Benadryl Cream] 1 applic TOPICAL TID PRN 3 Days #1 tub PRN Reason: Itching Metoprolol Tartrate [Lopressor] 75 mg PO TID #150 tab Thiamine [Vitamin B-1] 100 mg PO DAILY #30 cap Amiodarone [Cordarone] 200 mg PO DAILY #30 tab Bumetanide [Bumex] 1 mg PO DAILY #30 tablet Continue Guaifenesin/Pseudoephedrne HCl [Mucinex D ER 1,200-120 mg Tab] 1 tab PO BID PRN PRN Reason: Congestion Ubidecarenone [Coenzyme Q10] 200 mg PO DAILY Milk Thistle 350mg 350 mg PO DAILY Cholecalciferol [Vitamin D3 (25 Mcg = 1000 Iu)] 50 mcg PO DAILY Ascorbic Acid [Vitamin C] 500 mg PO DAILY Simethicone 180 mg PO DAILY PRN PRN Reason: gas Famotidine [Pepcid] 20 mg PO BID PRN PRN Reason: acid reflux Melatonin 5 mg PO HS Oxymetazoline 0.05% Nasl [place] [Afrin 0.05% Nasal [place]] 2 spray EA NOSTRIL BID PRN PRN Reason: Congestion Discontinued diphenhydrAMINE HCL [Benadryl] 25 - 50 mg PO Q4H PRN PRN Reason: Allergy Symptoms No Action Wheat Dextrin [Benefiber] 1 packet PO TID PRN PRN Reason: gut health Discharge Medication List Ascorbic Acid [Vitamin C] 500 mg PO DAILY 07/17/23 [History] Cholecalciferol [Vitamin D3 (25 Mcg = 1000 Iu)] 50 mcg PO DAILY 07/17/23 [History] Famotidine [Pepcid] 20 mg PO BID PRN 07/17/23 [History] Guaifenesin/Pseudoephedrne HCl [Mucinex D ER 1,200-120 mg Tab] 1 tab PO BID PRN 07/17/23 [History] Melatonin 5 mg PO HS 07/17/23 [History] Milk Thistle 350mg 350 mg PO DAILY 07/17/23 [History] Oxymetazoline 0.05% Nasl [place] [Afrin 0.05% Nasal [place]] 2 spray EA NOSTRIL BID PRN 07/17/23 [History] Simethicone 180 mg PO DAILY PRN 07/17/23 [History] Ubidecarenone [Coenzyme Q10] 200 mg PO DAILY 07/17/23 [History] Wheat Dextrin [Benefiber] 1 packet PO TID PRN 07/17/23 [History] Apixaban [Eliquis] 5 mg PO BID #60 tab 07/19/23 [Rx] Acetaminophen Tab [Tylenol] 325 mg PO Q6HR PRN tab 07/23/23 [Rx] Amiodarone [Cordarone] 200 mg PO DAILY #30 tab 07/23/23 [Rx] Bumetanide [Bumex] 1 mg PO DAILY #30 tablet 07/23/23 [Rx] Dapagliflozin Propanediol [Farxiga] 10 mg PO DAILY #30 tab 07/23/23 [Rx] Metoprolol Tartrate [Lopressor] 75 mg PO TID #150 tab 07/23/23 [Rx] Sacubitril/Valsartan [Entresto 24 mg-26 mg Tablet] 1 each PO BID #60 tab 07/23/23 [Rx] Spironolactone [Aldactone] 12.5 mg PO DAILY #15 tab 07/23/23 [Rx] Thiamine [Vitamin B-1] 100 mg PO DAILY #30 cap 07/23/23 [Rx] diphenhydrAMINE & Zinc Cream [Benadryl Cream] 1 applic TOPICAL TID PRN 3 Days #1 tub 07/23/23 [Rx] Follow up Appointment(s)/Referral(s): Kumar Flores MD [STAFF PHYSICIAN] - 1 Week Juan Diego Robb MD [STAFF PHYSICIAN] - 1 Week (cardiac cath as an outpatient ) None,Stated [Primary Care Provider] - 1-2 days Klaudia Abdalla MD [STAFF PHYSICIAN] - 1 Week (gaming worker for your leg dermatitis ) Jarrell Rodriguez MD [STAFF PHYSICIAN] - 1 Week (blood disease doctor ) Patient Instructions/Handouts: Heart Failure (DC) Activity/Diet/Wound Care/Special Instructions: heart healthy diet activity is restricted till you see your doctor please contact your health insurance provider to find a nearby primary care physician, please call to make appointment in one week after discharge your blood level (hemoglobin and hematocrit) are high , we recommend to check your blood test with your doctor in one week (hemoglobin and hematocrit) please CHF Weigh yourself every morning after you urinate. If you gain 2-3 pounds overnight or 5 pounds in one week, call your primary physician for guidance on your medications. Keep a log of your weights. Avoid salt, or foods with hidden salt. Extra salt makes your heart work harder and traps the fluid in your body for longer. Take all of your medications as directed, especially your water pills. NEVER skip a dose. Elevate your legs when you are not up moving around to help with circulation and prevent swelling. Call your physician if you notice any extra swelling in your legs, ankles, feet or abdomen, if you have a new dry cough, if your shortness of breath worsens with activity or at rest, or if you feel more fatigued. Discharge/Stand Alone Forms: Area PCPs Discharge Disposition: HOME WITH HOME HEALTH SERVICES
== END 2023-07-23 18:17 | disposition home health service (06) | DRG 291 ==
LOC: EC 16:43 → 3SCARD 21:09 → 1SOBS 07-18 09:55 → 3SCARD 07-18 23:08
PROVIDERS: ADMIT Internal Medicine; ATTEND Internal Medicine
DX: I11.0 Hypertensive heart disease with heart failure (principal); I50.23 Acute on chronic systolic (congestive) heart failure; I48.19 Other persistent atrial fibrillation; I42.6 Alcoholic cardiomyopathy; I08.3 Combined rheumatic disorders of mitral, aortic and tricuspid valves; I27.20 Pulmonary hypertension, unspecified; R00.0 Tachycardia, unspecified; I70.0 Atherosclerosis of aorta; K70.9 Alcoholic liver disease, unspecified; L30.9 Dermatitis, unspecified; N50.89 Other specified disorders of the male genital organs; F10.20 Alcohol dependence, uncomplicated; Z79.01 Long term (current) use of anticoagulants; Z28.310 Unvaccinated for COVID-19; Z79.899 Other long term (current) drug therapy
CPT/HCPCS: 36415; 71046; 80048; 80053; 82140; 83735; 83880; 84484; 85025; 85027; 85610; 85730; 93005; 93306; 96365; 96366; 96375; 96376; 99291

== ENCOUNTER 2023-08-16 11:47 | Day surgery (SDC) | payer MEDICARE ==
[2023-08-16 12:06] VITALS: TEMP 97.1
[2023-08-16 12:47] LABS: Glucose,Whole Blood 125 mg/dL (70-110)
[2023-08-16] MEDS: IV FLUID CONTINUATION 1,000 ML IV ONE (12:50)
[2023-08-16] MEDS: LIDOCAINE 1% (10MG/ML) FOR IV START INTRADERMA STA (12:52)
[2023-08-16] MEDS: SODIUM CHLORIDE 0.9% 500 ML 500 ML IV SCH (12:54)
[2023-08-16] MEDS ORDERED: PROPOFOL 10 MG/ML 20 ML VIAL IV ONE (14:15)
[2023-08-16] MEDS ORDERED: LIDOCAINE 1% INJ 10MG/ML (20 ML MDV) ONE (14:15)
[2023-08-16 14:31] VITALS: RESP 16
[2023-08-16 15:28] VITALS: BP 134/82; PULSE 60
--- NOTE | 2023-08-16 16:18 | P.TEE ---
Description of Procedure(s): Procedure performed: Transesophageal Echocardiogram with color flow doppler, pulsed wave doppler and continuous wave doppler, synchronized cardioversion Moderate conscious sedation: Moderate conscious sedation was supplied by anesthesia, see separate report. Complications: none Indications: Afib PROCEDURE: After the risks, benefits and alternatives of the above mentioned procedure was explained in detail with the patient, informed consent was obtained. Patient was brought to the lab in a fasting state. Patient was given sedation by anesthesia, see separate report. The throat was sprayed with Hurricane to anesthetize the throat. A lubricated Omni probe was then introduced into the esophagus and stomach and multiple views were obtained. 2D echo with color flow doppler, pulsed wave doppler and continuous wave doppler was utilized. Agitated saline bubbles were injected to assess for any intra- atrial shunt. The probe was then removed. There was no thrombus noted and therefore patient underwent synchronized cardioversion x 1 with 200J with resultant sinus rhythm. Patient tolerated the procedure well. Patient was transferred to the post procedure area in stable and satisfactory condition. FINDINGS: 1. The aortic valve is tricupid with normal function 2. The mitral valve appears be normal with mild to moderate central regurgitation. 3. Tricuspid valve appears to be normal with moderate to severe tricuspid regurgitation. 4. The interatrial septum is intact. No evidence of PFO. 5. Left atrial appendage is free of clot. 6. Left ventricular EF 25-30%
== END 2023-08-16 15:43 | disposition home or self-care (01) ==
LOC: OR 11:47
PROVIDERS: ATTEND Internal Medicine
DX: I08.1 Rheumatic disorders of both mitral and tricuspid valves (principal); I11.0 Hypertensive heart disease with heart failure; I50.22 Chronic systolic (congestive) heart failure; I42.9 Cardiomyopathy, unspecified; I48.19 Other persistent atrial fibrillation; E78.5 Hyperlipidemia, unspecified; F10.90 Alcohol use, unspecified, uncomplicated; Z79.01 Long term (current) use of anticoagulants; Z79.899 Other long term (current) drug therapy
CPT/HCPCS: 93312; 93320; 93325; 92960; J2001; J2704